=== PATIENT | male | born 1985 | race Caucasian/White ===

== ENCOUNTER 2016-09-08 13:39 | Emergency (ER) | payer OTHER ==
[~2016-09-08 13:39] MED LIST: BACL10TA2 PO; COLA100C PO; DILA8TAB4 PO; GABA300C3 PO; GABA600T PO; HYDR-4274 PO; TYLE325T5 PO
[2016-09-08 15:29] LABS: BASO # 0.1 K/mm3 (0.0-0.2); BASO % 1.1 % (0.0-1.0); EOS # 0.2 K/mm3 (0.0-0.50); EOS % 1.6 % (0.0-3.0); LARGE UNSTAINED CELL # 0.1 K/mm3 (0.0-0.4); LARGE UNSTAINED CELL % 1.1 % (0.0-4.0); LYMPH # 1.7 K/mm3 (1.5-4.5); LYMPH % 14.3 % (24.0-44.0); MEAN CORPUSCULAR HEMOGLOBIN 28.3 pg (27.0-33.0); MEAN CORPUSCULAR HGB CONC 32.9 g/dl (32.0-36.5); MEAN CORPUSCULAR VOLUME 86.2 fl (80.0-96.0); MONO # 0.5 K/mm3 (0.0-0.8); MONO % 4.7 % (0.0-5.0); NEUTROPHILS # 8.3 K/mm3 (1.8-7.7); NEUTROPHILS % 77.3 % (36.0-66.0); PLATELET COUNT, AUTOMATED 245 k/mm3 (150-450); RED CELL DISTRIBUTION WIDTH 15.4 % (11.5-14.5); WHITE BLOOD COUNT 10.8 K/mm3 (4.0-10.0)
--- NOTE | 2016-09-08 15:52 | REP ---
Clinical: Swelling and erythema; rule out osteomyelitis. Technique: AP and lateral views of the right tibia. Comparison: 03/25/2016 Findings: The patient is noted to be status post htmvm-kfv-hxhy amputation. Osseous structures are relatively normal and stable compared to prior examination. No acute periosteal reaction is appreciated and no soft tissue subcutaneous emphysema is noted. Impression: Normal appearance for ehmci-mnp-aceh amputation. No radiographic evidence to suggest acute osteomyelitis. Signed by Agustin Coyle MD 09/08/2016 03:44 P
[2016-09-08 16:30] LABS: ERYTHROCYTE SEDIMENTATION RATE 9 mm/hr (0-15)
[2016-09-08] MEDS ORDERED: BACTRIM 160MG/800MG DS TAB As Ordered ONE (17:11)
[2016-09-08] MEDS ORDERED: KETOROLAC 30 MG/ML VIAL (J1885) As Ordered ONE (17:12)
--- NOTE | 2016-09-08 17:45 | EDDOCDS ---
Physician Documentation [facility] Name: Kurt Asher Age: 31 yrs Sex: Male : 1985 Arrival Date: 09/08/2016 Time: 13:39 Bed PR Private MD: [facility] Disposition: 09/08/16 17:06 Discharged to Home/Self Care. Impression: Cellulitis of right lower limb. - Condition is Stable. - Prescriptions for Bactrim DS 800- 160 mg Oral Tablet - take 2 tablet by ORAL route every 12 hours for 7 days; 28 tablet. naproxen 500 mg Oral tablet - take 1 tablet by ORAL route every 12 hours; 28 tablet. Tylenol 325 mg Oral Tablet - take 2 tablet by ORAL route every 6 hours as needed; 1 bottle. - Medication Reconciliation form. - Follow up: Emergency Department; When: As soon as possible; Reason: Worsening of conditions. Follow up: Private Physician; When: 2 - 3 days; Reason: Recheck today's complaints. - Problem is new. - Symptoms are unchanged. Historical: - Allergies: no known allergies; - Home Meds: 1. baclofen 20 mg Oral tab 1 tab 4 times per day 2. gabapentin 600 mg Oral tab 1 tab four times a day 3. oxycodone 5 mg Oral tab 2 tabs every 4-6 hours as needed - PMHx: Chronic Back pain; - PSHx: right BKA; - Social history: Smoking status: Patient uses tobacco products, current some day smoker. No barriers to communication noted, The patient speaks fluent Yi, Speaks appropriately for age. - Family history: Not pertinent. - : The pt / caregiver states he / she is not on anticoagulants. Home medication list is obtained from the patient. - Exposure Risk Screening:: None identified. Vital Signs: 09/08 13:41 BP 131 / 102; Pulse 93; Resp 18 S; Temp 98.3(O); Pulse Ox 100% on R/A; Weight 83.91 kg dd6 / 184.99 lbs (R); Height 6 ft. 0 in. (182.88 cm) (R); 17:09 BP 146 / 87 RA Sitting (auto/reg); Pulse 84; Resp 16; Temp 96.8(O); Pulse Ox 96% on R/A;rs6 13:41 Body Mass Index 25.09 (83.91 kg, 182.88 cm) dd6 MDM: 15:08 Tibia/Fibula Ordered. EDMS 15:08 CBC with Diff Ordered. EDMS 15:08 CRP Ordered. EDMS 15:08 ESR Ordered. EDMS 17:04 CBC with Diff Reviewed. jk8 17:04 CRP Reviewed. jk8 17:04 ESR Reviewed. jk8 17:04 Tibia/Fibula Reviewed. jk8 17:09 Trimethoprim-Sulfamethoxazole (MRSA dose) 160 mg-800 mg (DS) 2 tabs PO once ordered. jk8 17:09 ketorolac 60 mg IM once ordered. jk8 Administered Medications: 17:20 Drug: Trimethoprim-Sulfamethoxazole (MRSA dose) 2 tabs [sulfamethoxazole 800 ms18 mg-trimethoprim 160 mg tablet (2 tabs)] Route: PO; 17:20 Drug: ketorolac 60 mg [ketorolac 30 mg/mL (1 mL) injection solution (2 mL)] Route: IM; ms18 Site: right gluteus; Signatures: Dispatcher [employer] Brady Mackenzie, RN RN Neil Guajardo RN RN mlb1 Daniel Licona PA-C PABaltazar jAnette Bearden RN ms18 MTDD
--- NOTE | 2016-09-08 17:45 | EDDOCDS ---
Nurse's Notes [facility] Name: Kurt Asher Age: 31 yrs Sex: Male : 1985 Arrival Date: 09/08/2016 Time: 13:39 Bed PR2 / 26 Private MD: [place] Rod[place], [place] Diagnosis: Cellulitis of right lower limb Presentation: 09/08 13:48 Presenting complaint: Patient states: having increasing pain in right BKA stump - bcj increased redness swelling over last few days. unable to put on prothesis today due to pain / swelling. denies injury. was told by [place] yesterday that is MRSA positive. Adult Sepsis Screening: The patient does not have new or worsening altered mentation. Patient's respiratory rate is less than 22. Systolic blood pressure is greater than 100. Patient has a qSOFA score of 0- Negative Sepsis Screen. Suicide/Homicide risk assessment- the patient denies having any suicidal and/or homicidal ideations and does not present with any other emotional, behavioral or mental health complaints. Status: The patient is an active duty automotive service cashier. Transition of care: patient was not received from another setting of care. 13:48 Acuity: RAJWINDER Level 3 bcj 13:48 Method Of Arrival: Walkin/Carried/Asstd bcj Triage Assessment: 13:51 General: Appears in no apparent distress, comfortable. Pain: Location: right leg Pain bcj currently is 9 out of 10 on a pain scale. HIV screening NA for this visit Offered previously. Historical: - Allergies: no known allergies; - Home Meds: 1. baclofen 20 mg Oral tab 1 tab 4 times per day 2. gabapentin 600 mg Oral tab 1 tab four times a day 3. oxycodone 5 mg Oral tab 2 tabs every 4-6 hours as needed - PMHx: Chronic Back pain; - PSHx: right BKA; - Social history: Smoking status: Patient uses tobacco products, current some day smoker. No barriers to communication noted, The patient speaks fluent Egyptian, Speaks appropriately for age. - Family history: Not pertinent. - : The pt / caregiver states he / she is not on anticoagulants. Home medication list is obtained from the patient. - Exposure Risk Screening:: None identified. Screenin:42 Screening information is obtained from the patient. Fall risk: No risks identified. mlb1 Assistance ADL's: requires no assistance with activities of daily living. Abuse/DV Screen: The patient / caregiver reports he/she is: not in a situation that causes fear, pain or injury. Nutritional screening: No deficits noted. Advance Directives: Currently, there is no health care proxy. home support is adequate. Assessment: 17:41 General: Appears in no apparent distress, comfortable, Behavior is appropriate for age, mlb1 cooperative. Pain: Location: right stump Pain currently is 4 out of 10 on a pain scale. Respiratory: No deficits noted. Derm: Skin is pink, warm & dry. Vital Signs: 13:41 BP 131 / 102; Pulse 93; Resp 18 S; Temp 98.3(O); Pulse Ox 100% on R/A; Weight 83.91 kg dd6 (R); Height 6 ft. 0 in. (182.88 cm) (R); 17:09 BP 146 / 87 RA Sitting (auto/reg); Pulse 84; Resp 16; Temp 96.8(O); Pulse Ox 96% on R/A;rs6 13:41 Body Mass Index 25.09 (83.91 kg, 182.88 cm) dd6 Vitals: 13:41 Log In Time: September 08, 2016 at 13:39. dd6 ED Course: 13:41 Patient visited by Iftikhar Ibrahim PCA. dd6 13:41 [facility] is Private Physician. dd6 13:41 Patient moved to Waiting dd6 13:43 Patient moved to Pre RCE dd6 13:50 Triage Initiated bcj 13:52 Patient visited by Brady Linder RN. bcj 14:25 Patient moved to Triage 3 ms18 15:02 Daniel Licona PA-C is PHCP. jk8 15:02 Ashley Nguyen MD is Attending Physician. jk8 15:20 Patient visited by Phoebe Otto PCA. rs6 15:20 Patient moved to TR2 rs6 15:20 ESR Sent. rs6 15:20 CRP Sent. rs6 15:20 CBC with Diff Sent. rs6 15:54 Tibia/Fibula Returned. EDMS 17:03 Patient moved to PR2 / rs6 17:10 Patient visited by Phoebe Otto PCA. rs6 17:34 Patient visited by Daniel Licona PA-C. jk8 17:41 Patient visited by Neil Romo RN. mlb1 17:42 No IV's were initiated during this patient's visit. No procedures done that require mlb1 assistance. 17:43 The patient / caregiver is instructed regarding the plan of care and ED course. mlb1 17:44 Patient visited by Neil Romo RN. mlb1 Administered Medications: 17:20 Drug: Trimethoprim-Sulfamethoxazole (MRSA dose) 2 tabs [sulfamethoxazole 800 ms18 mg-trimethoprim 160 mg tablet (2 tabs)] Route: PO; 17:20 Drug: ketorolac 60 mg [ketorolac 30 mg/mL (1 mL) injection solution (2 mL)] Route: IM; ms18 Site: right gluteus; Order Results: Lab Order: CBC with Diff; SPEC'M 09/08/16 15:19 Test: WHITE BLOOD COUNT; Value: 10.8; Range: 4.0-10.0; Abnormal: Above high normal; Units: K/mm3; Status: F Test: RED BLOOD COUNT; Value: 5.53; Range: 4.30-6.10; Units: M/mm3; Status: F Test: HEMOGLOBIN; Value: 15.7; Range: 14.0-18.0; Units: g/dl; Status: F Test: HEMATOCRIT; Value: 47.7; Range: 42.0-52.0; Units: %; Status: F Test: MEAN CORPUSCULAR VOLUME; Value: 86.2; Range: 80.0-96.0; Units: fl; Status: F Test: MEAN CORPUSCULAR HEMOGLOBIN; Value: 28.3; Range: 27.0-33.0; Units: pg; Status: F Test: MEAN CORPUSCULAR HGB CONC; Value: 32.9; Range: 32.0-36.5; Units: g/dl; Status: F Test: RED CELL DISTRIBUTION WIDTH; Value: 15.4; Range: 11.5-14.5; Abnormal: Above high normal; Units: %; Status: F Test: PLATELET COUNT, AUTOMATED; Value: 245; Range: 150-450; Units: k/mm3; Status: F Test: NEUTROPHILS %; Value: 77.3; Range: 36.0-66.0; Abnormal: Above high normal; Units: %; Status: F Test: LYMPH %; Value: 14.3; Range: 24.0-44.0; Abnormal: Below low normal; Units: %; Status: F Test: MONO %; Value: 4.7; Range: 0.0-5.0; Units: %; Status: F Test: EOS %; Value: 1.6; Range: 0.0-3.0; Units: %; Status: F Test: BASO %; Value: 1.1; Range: 0.0-1.0; Abnormal: Above high normal; Units: %; Status: F Test: LARGE UNSTAINED CELL %; Value: 1.1; Range: 0.0-4.0; Units: %; Status: F Test: NEUTROPHILS #; Value: 8.3; Range: 1.8-7.7; Abnormal: Above high normal; Units: K/mm3; Status: F Test: LYMPH #; Value: 1.7; Range: 1.5-4.5; Units: K/mm3; Status: F Test: MONO #; Value: 0.5; Range: 0.0-0.8; Units: K/mm3; Status: F Test: EOS #; Value: 0.2; Range: 0.0-0.50; Units: K/mm3; Status: F Test: BASO #; Value: 0.1; Range: 0.0-0.2; Units: K/mm3; Status: F Test: LARGE UNSTAINED CELL #; Value: 0.1; Range: 0.0-0.4; Units: K/mm3; Status: F Lab Order: CRP; SPEC'M 09/08/16 15:19 Test: C REACTIVE PROTEIN QUANTITATIV; Value: 7.37; Range: 0.00-0.30; Abnormal: Above high normal; Units: MG/DL; Status: F Lab Order: ESR; SPEC'M 09/08/16 15:19 Test: ERYTHROCYTE SEDIMENTATION RATE; Value: 9; Range: 0-15; Units: mm/hr; Status: F Radiology Order: Tibia/Fibula Test: Tibia/Fibula REASON FOR EXAMINATION: BKA, r/o osteo; Clinical: Swelling and erythema; rule out osteomyelitis.; ; Technique: AP and lateral views of the right tibia.; ; Comparison: 03/25/2016; ; Findings:; The patient is noted to be status post mqxsy-fpn-[id number] amputation. Osseous; structures are relatively normal and stable compared to prior examination. No; acute periosteal reaction is appreciated and no soft tissue subcutaneous; emphysema is noted.; ; Impression:; Normal appearance for ciepb-gci-aoyh amputation.; No radiographic evidence to suggest acute osteomyelitis.; ; ; Signed by; Agustin Coyle MD 09/08/2016 03:44 P; Outcome: 17:06 Discharge ordered by Provider. jk8 17:42 Discharge Assessment: Patient awake, alert and oriented x 3. No cognitive and/or mlb1 functional deficits noted. Patient verbalized understanding of disposition instructions. patient administered narcotics - no. The following High Risk Discharge criteria are identified: None. Discharged to home ambulatory. Condition: good. Discharge instructions given to patient, Instructed on discharge instructions, follow up and referral plans. Demonstrated understanding of instructions, medications, Pt was receptive of discharge instructions/ teaching. Prescriptions given X 3. No special radiology studies were completed. Property sent home with patient. 17:44 Patient left the ED. mlb1 Signatures: Dispatcher [employer] EDMS Brady Linder RN RN Neil Guajardo RN RN mlb1 Iftikhar Ibrahim, BILLING DEPARTMENT SUPERVISOR BILLING DEPARTMENT SUPERVISOR dd6 Anette Antunez RN RN ms18 Phoebe Otto, BILLING DEPARTMENT SUPERVISOR BILLING DEPARTMENT SUPERVISOR rs6 Daniel Licona PA-C PA-C jk8 MTDD
--- NOTE | 2016-09-10 18:45 | EDDOCDS ---
Physician Documentation [facility] Name: Kurt Asher Age: 31 yrs Sex: Male : 1985 Arrival Date: 09/08/2016 Time: 13:39 Bed PR Private MD: [facility] [place] Disposition: 09/08/16 17:06 Discharged to Home/Self Care. Impression: Cellulitis of right lower limb. - Condition is Stable. - Prescriptions for Bactrim DS 800- 160 mg Oral Tablet - take 2 tablet by ORAL route every 12 hours for 7 days; 28 tablet. naproxen 500 mg Oral tablet - take 1 tablet by ORAL route every 12 hours; 28 tablet. Tylenol 325 mg Oral Tablet - take 2 tablet by ORAL route every 6 hours as needed; 1 bottle. - Medication Reconciliation form. - Follow up: Emergency Department; When: As soon as possible; Reason: Worsening of conditions. Follow up: Private Physician; When: 2 - 3 days; Reason: Recheck today's complaints. - Problem is new. - Symptoms are unchanged. Historical: - Allergies: no known allergies; - Home Meds: 1. baclofen 20 mg Oral tab 1 tab 4 times per day 2. gabapentin 600 mg Oral tab 1 tab four times a day 3. oxycodone 5 mg Oral tab 2 tabs every 4-6 hours as needed - PMHx: Chronic Back pain; - PSHx: right BKA; - Social history: Smoking status: Patient uses tobacco products, current some day smoker. No barriers to communication noted, The patient speaks fluent Greenlandic, Speaks appropriately for age. - Family history: Not pertinent. - : The pt / caregiver states he / she is not on anticoagulants. Home medication list is obtained from the patient. - Exposure Risk Screening:: None identified. Vital Signs: 09/08 13:41 BP 131 / 102; Pulse 93; Resp 18 S; Temp 98.3(O); Pulse Ox 100% on R/A; Weight 83.91 kg dd6 / 184.99 lbs (R); Height 6 ft. 0 in. (182.88 cm) (R); 17:09 BP 146 / 87 RA Sitting (auto/reg); Pulse 84; Resp 16; Temp 96.8(O); Pulse Ox 96% on R/A;rs6 13:41 Body Mass Index 25.09 (83.91 kg, 182.88 cm) dd6 MDM: 15:08 Tibia/Fibula Ordered. EDMS 15:08 CBC with Diff Ordered. EDMS 15:08 CRP Ordered. EDMS 15:08 ESR Ordered. EDMS 17:04 CBC with Diff Reviewed. jk8 17:04 CRP Reviewed. jk8 17:04 ESR Reviewed. jk8 17:04 Tibia/Fibula Reviewed. jk8 17:09 Trimethoprim-Sulfamethoxazole (MRSA dose) 160 mg-800 mg (DS) 2 tabs PO once ordered. jk8 17:09 ketorolac 60 mg IM once ordered. jk8 09/09 08:44 T-Sheet-- Draft Copy was scanned into XMPie and attached to record. [facility] Administered Medications: 09/08 17:20 Drug: Trimethoprim-Sulfamethoxazole (MRSA dose) 2 tabs [sulfamethoxazole 800 ms18 mg-trimethoprim 160 mg tablet (2 tabs)] Route: PO; 17:20 Drug: ketorolac 60 mg [ketorolac 30 mg/mL (1 mL) injection solution (2 mL)] Route: IM; ms18 Site: right gluteus; Signatures: Dispatcher [employer] Brady Mackenzie RN RN bcj Barney, Michael B RN RN mlb1 Daniel Licona PA-C PA-C jk8 Ashley Damian Mallory RN ms18 The chart was reviewed and I authenticate all verbal orders and agree with the evaluation and treatment provided.Attachments: 09/09 08:44 T-Sheet-- Draft Copy [facility] Chart Complete MTDD
--- NOTE | 2016-09-10 18:45 | EDDOCDS ---
Physician Documentation [facility] Name: Kurt Asher Age: 31 yrs Sex: Male : 1985 Arrival Date: 09/08/2016 Time: 13:39 Bed PR Private MD: [facility] [place] Disposition: 09/08/16 17:06 Discharged to Home/Self Care. Impression: Cellulitis of right lower limb. - Condition is Stable. - Prescriptions for Bactrim DS 800- 160 mg Oral Tablet - take 2 tablet by ORAL route every 12 hours for 7 days; 28 tablet. naproxen 500 mg Oral tablet - take 1 tablet by ORAL route every 12 hours; 28 tablet. Tylenol 325 mg Oral Tablet - take 2 tablet by ORAL route every 6 hours as needed; 1 bottle. - Medication Reconciliation form. - Follow up: Emergency Department; When: As soon as possible; Reason: Worsening of conditions. Follow up: Private Physician; When: 2 - 3 days; Reason: Recheck today's complaints. - Problem is new. - Symptoms are unchanged. Historical: - Allergies: no known allergies; - Home Meds: 1. baclofen 20 mg Oral tab 1 tab 4 times per day 2. gabapentin 600 mg Oral tab 1 tab four times a day 3. oxycodone 5 mg Oral tab 2 tabs every 4-6 hours as needed - PMHx: Chronic Back pain; - PSHx: right BKA; - Social history: Smoking status: Patient uses tobacco products, current some day smoker. No barriers to communication noted, The patient speaks fluent Korean, Speaks appropriately for age. - Family history: Not pertinent. - : The pt / caregiver states he / she is not on anticoagulants. Home medication list is obtained from the patient. - Exposure Risk Screening:: None identified. Vital Signs: 09/08 13:41 BP 131 / 102; Pulse 93; Resp 18 S; Temp 98.3(O); Pulse Ox 100% on R/A; Weight 83.91 kg dd6 / 184.99 lbs (R); Height 6 ft. 0 in. (182.88 cm) (R); 17:09 BP 146 / 87 RA Sitting (auto/reg); Pulse 84; Resp 16; Temp 96.8(O); Pulse Ox 96% on R/A;rs6 13:41 Body Mass Index 25.09 (83.91 kg, 182.88 cm) dd6 MDM: 15:08 Tibia/Fibula Ordered. EDMS 15:08 CBC with Diff Ordered. EDMS 15:08 CRP Ordered. EDMS 15:08 ESR Ordered. EDMS 17:04 CBC with Diff Reviewed. jk8 17:04 CRP Reviewed. jk8 17:04 ESR Reviewed. jk8 17:04 Tibia/Fibula Reviewed. jk8 17:09 Trimethoprim-Sulfamethoxazole (MRSA dose) 160 mg-800 mg (DS) 2 tabs PO once ordered. jk8 17:09 ketorolac 60 mg IM once ordered. jk8 09/09 08:44 T-Sheet-- Draft Copy was scanned into XbyMe and attached to record. [facility] Administered Medications: 09/08 17:20 Drug: Trimethoprim-Sulfamethoxazole (MRSA dose) 2 tabs [sulfamethoxazole 800 ms18 mg-trimethoprim 160 mg tablet (2 tabs)] Route: PO; 17:20 Drug: ketorolac 60 mg [ketorolac 30 mg/mL (1 mL) injection solution (2 mL)] Route: IM; ms18 Site: right gluteus; Signatures: Dispatcher [employer] Brady Mackenzie RN RN bcj Barney, Michael B RN RN mlb1 Daniel Licona PA-C PA-C jk8 Ashley Damian Mallory RN ms18 The chart was reviewed and I authenticate all verbal orders and agree with the evaluation and treatment provided.Attachments: 09/09 08:44 T-Sheet-- Draft Copy [facility] Chart Complete MTDD
--- NOTE | 2016-09-10 18:45 | EDDOCDS ---
Nurse's Notes [facility] Name: Kurt Asher Age: 31 yrs Sex: Male : 1985 Arrival Date: 09/08/2016 Time: 13:39 Bed PR2 / 26 Private MD: MS Rodrick, Platter Diagnosis: Cellulitis of right lower limb Presentation: 09/08 13:48 Presenting complaint: Patient states: having increasing pain in right BKA stump - bcj increased redness swelling over last few days. unable to put on prothesis today due to pain / swelling. denies injury. was told by MS yesterday that is MRSA positive. Adult Sepsis Screening: The patient does not have new or worsening altered mentation. Patient's respiratory rate is less than 22. Systolic blood pressure is greater than 100. Patient has a qSOFA score of 0- Negative Sepsis Screen. Suicide/Homicide risk assessment- the patient denies having any suicidal and/or homicidal ideations and does not present with any other emotional, behavioral or mental health complaints. Status: The patient is an active duty services engineer. Transition of care: patient was not received from another setting of care. 13:48 Acuity: RAJWINDER Level 3 bcj 13:48 Method Of Arrival: Walkin/Carried/Asstd bcj Triage Assessment: 13:51 General: Appears in no apparent distress, comfortable. Pain: Location: right leg Pain bcj currently is 9 out of 10 on a pain scale. HIV screening NA for this visit Offered previously. Historical: - Allergies: no known allergies; - Home Meds: 1. baclofen 20 mg Oral tab 1 tab 4 times per day 2. gabapentin 600 mg Oral tab 1 tab four times a day 3. oxycodone 5 mg Oral tab 2 tabs every 4-6 hours as needed - PMHx: Chronic Back pain; - PSHx: right BKA; - Social history: Smoking status: Patient uses tobacco products, current some day smoker. No barriers to communication noted, The patient speaks fluent [place], Speaks appropriately for age. - Family history: Not pertinent. - : The pt / caregiver states he / she is not on anticoagulants. Home medication list is obtained from the patient. - Exposure Risk Screening:: None identified. Screenin:42 Screening information is obtained from the patient. Fall risk: No risks identified. mlb1 Assistance ADL's: requires no assistance with activities of daily living. Abuse/DV Screen: The patient / caregiver reports he/she is: not in a situation that causes fear, pain or injury. Nutritional screening: No deficits noted. Advance Directives: Currently, there is no health care proxy. home support is adequate. Assessment: 17:41 General: Appears in no apparent distress, comfortable, Behavior is appropriate for age, mlb1 cooperative. Pain: Location: right stump Pain currently is 4 out of 10 on a pain scale. Respiratory: No deficits noted. Derm: Skin is pink, warm & dry. Vital Signs: 13:41 BP 131 / 102; Pulse 93; Resp 18 S; Temp 98.3(O); Pulse Ox 100% on R/A; Weight 83.91 kg dd6 (R); Height 6 ft. 0 in. (182.88 cm) (R); 17:09 BP 146 / 87 RA Sitting (auto/reg); Pulse 84; Resp 16; Temp 96.8(O); Pulse Ox 96% on R/A;rs6 13:41 Body Mass Index 25.09 (83.91 kg, 182.88 cm) dd6 Vitals: 13:41 Log In Time: September 08, 2016 at 13:39. dd6 ED Course: 13:41 Patient visited by Iftikhar Ibrahim PCA. dd6 13:41 [facility] is Private Physician. dd6 13:41 Patient moved to Waiting dd6 13:43 Patient moved to Pre RCE dd6 13:50 Triage Initiated bcj 13:52 Patient visited by Brady Linder RN. bcj 14:25 Patient moved to Triage 3 ms18 15:02 Daniel Licona PA-C is PHCP. jk8 15:02 Ashley Nguyen MD is Attending Physician. jk8 15:20 Patient visited by Phoebe Otto PCA. rs6 15:20 Patient moved to TR2 rs6 15:20 ESR Sent. rs6 15:20 CRP Sent. rs6 15:20 CBC with Diff Sent. rs6 15:54 Tibia/Fibula Returned. EDMS 17:03 Patient moved to PR2 / rs6 17:10 Patient visited by Phoebe Otto PCA. rs6 17:34 Patient visited by Daniel Licona PA-C. jk8 17:41 Patient visited by Neil Romo RN. mlb1 17:42 No IV's were initiated during this patient's visit. No procedures done that require mlb1 assistance. 17:43 The patient / caregiver is instructed regarding the plan of care and ED course. mlb1 17:44 Patient visited by Neil Romo RN. mlb1 09/09 08:44 T-Sheet-- Draft Copy was scanned into [employer] [place] and attached to record. [facility] Administered Medications: 09/08 17:20 Drug: Trimethoprim-Sulfamethoxazole (MRSA dose) 2 tabs [sulfamethoxazole 800 ms18 mg-trimethoprim 160 mg tablet (2 tabs)] Route: PO; 17:20 Drug: ketorolac 60 mg [ketorolac 30 mg/mL (1 mL) injection solution (2 mL)] Route: IM; ms18 Site: right gluteus; Order Results: Lab Order: CBC with Diff; SPEC'M 09/08/16 15:19 Test: WHITE BLOOD COUNT; Value: 10.8; Range: 4.0-10.0; Abnormal: Above high normal; Units: K/mm3; Status: F Test: RED BLOOD COUNT; Value: 5.53; Range: 4.30-6.10; Units: M/mm3; Status: F Test: HEMOGLOBIN; Value: 15.7; Range: 14.0-18.0; Units: g/dl; Status: F Test: HEMATOCRIT; Value: 47.7; Range: 42.0-52.0; Units: %; Status: F Test: MEAN CORPUSCULAR VOLUME; Value: 86.2; Range: 80.0-96.0; Units: fl; Status: F Test: MEAN CORPUSCULAR HEMOGLOBIN; Value: 28.3; Range: 27.0-33.0; Units: pg; Status: F Test: MEAN CORPUSCULAR HGB CONC; Value: 32.9; Range: 32.0-36.5; Units: g/dl; Status: F Test: RED CELL DISTRIBUTION WIDTH; Value: 15.4; Range: 11.5-14.5; Abnormal: Above high normal; Units: %; Status: F Test: PLATELET COUNT, AUTOMATED; Value: 245; Range: 150-450; Units: k/mm3; Status: F Test: NEUTROPHILS %; Value: 77.3; Range: 36.0-66.0; Abnormal: Above high normal; Units: %; Status: F Test: LYMPH %; Value: 14.3; Range: 24.0-44.0; Abnormal: Below low normal; Units: %; Status: F Test: MONO %; Value: 4.7; Range: 0.0-5.0; Units: %; Status: F Test: EOS %; Value: 1.6; Range: 0.0-3.0; Units: %; Status: F Test: BASO %; Value: 1.1; Range: 0.0-1.0; Abnormal: Above high normal; Units: %; Status: F Test: LARGE UNSTAINED CELL %; Value: 1.1; Range: 0.0-4.0; Units: %; Status: F Test: NEUTROPHILS #; Value: 8.3; Range: 1.8-7.7; Abnormal: Above high normal; Units: K/mm3; Status: F Test: LYMPH #; Value: 1.7; Range: 1.5-4.5; Units: K/mm3; Status: F Test: MONO #; Value: 0.5; Range: 0.0-0.8; Units: K/mm3; Status: F Test: EOS #; Value: 0.2; Range: 0.0-0.50; Units: K/mm3; Status: F Test: BASO #; Value: 0.1; Range: 0.0-0.2; Units: K/mm3; Status: F Test: LARGE UNSTAINED CELL #; Value: 0.1; Range: 0.0-0.4; Units: K/mm3; Status: F Lab Order: CRP; SPEC'M 09/08/16 15:19 Test: C REACTIVE PROTEIN QUANTITATIV; Value: 7.37; Range: 0.00-0.30; Abnormal: Above high normal; Units: MG/DL; Status: F Lab Order: ESR; SPEC'M 09/08/16 15:19 Test: ERYTHROCYTE SEDIMENTATION RATE; Value: 9; Range: 0-15; Units: mm/hr; Status: F Radiology Order: Tibia/Fibula Test: Tibia/Fibula REASON FOR EXAMINATION: BKA, r/o osteo; Clinical: Swelling and erythema; rule out osteomyelitis.; ; Technique: AP and lateral views of the right tibia.; ; Comparison: 03/25/2016; ; Findings:; The patient is noted to be status post [id number] amputation. Osseous; structures are relatively normal and stable compared to prior examination. No; acute periosteal reaction is appreciated and no soft tissue subcutaneous; emphysema is noted.; ; Impression:; Normal appearance for [id number] amputation.; No radiographic evidence to suggest acute osteomyelitis.; ; ; Signed by; Agustin Coyle MD 09/08/2016 03:44 P; Outcome: 17:06 Discharge ordered by Provider. jk8 17:42 Discharge Assessment: Patient awake, alert and oriented x 3. No cognitive and/or mlb1 functional deficits noted. Patient verbalized understanding of disposition instructions. patient administered narcotics - no. The following High Risk Discharge criteria are identified: None. Discharged to home ambulatory. Condition: good. Discharge instructions given to patient, Instructed on discharge instructions, follow up and referral plans. Demonstrated understanding of instructions, medications, Pt was receptive of discharge instructions/ teaching. Prescriptions given X 3. No special radiology studies were completed. Property sent home with patient. 17:44 Patient left the ED. mlb1 Signatures: Dispatcher [employer] EDBrady Driver, RN RN Neil Guajardo RN RN mlb1 Iftikhar Ibrahim, COMMUNICATIONS PLANNER COMMUNICATIONS PLANNER dd6 Anette Antunez RN RN ms18 Phoebe Otto, COMMUNICATIONS PLANNER COMMUNICATIONS PLANNER rs6 Daniel Licona PA-C PA-C jk8 Hoffert, Sarah seh Chart Complete MTDD
== END 2016-09-08 17:44 | disposition home or self-care (01) ==
LOC: M ED 13:39
DX: L03.115 Cellulitis of right lower limb (principal); G89.29 Other chronic pain; Z89.511 Acquired absence of right leg below knee; F17.200 Nicotine dependence, unspecified, uncomplicated; Z79.899 Other long term (current) drug therapy
CPT/HCPCS: 36415; 73590; 85025; 85652; 86140; 96372; 99284; J1885

== ENCOUNTER 2016-12-19 11:23 | Emergency (ER) | payer OTHER ==
[~2016-12-19] VITALS: Ht 182.9 cm; Wt 88.5 kg
[~2016-12-19 11:23] MED LIST changes: -COLA100C PO; +COLA100C3 PO; +GABA-282 PO; -GABA300C3 PO
[2016-12-19] MEDS ORDERED: OXYC15TA76 PO (11:40)
[2016-12-19] MEDS ORDERED: KETOROLAC 30 MG/ML VIAL (J1885) IV ONE (12:30)
[2016-12-19] MEDS ORDERED: CLINDAMYCIN 900 MG in APPROPRIATE DILUENT 1 EA IV ONE (12:30)
[2016-12-19 13:05] LABS: BASO % 0.4 % (0.0-1.0); EOS # 0.2 K/mm3 (0.0-0.50); EOS % 1.8 % (0.0-3.0); LARGE UNSTAINED CELL # 0.1 K/mm3 (0.0-0.4); LYMPH # 1.7 K/mm3 (1.5-4.5); LYMPH % 13.3 % (24.0-44.0); MEAN CORPUSCULAR HEMOGLOBIN 28.9 pg (27.0-33.0); MEAN CORPUSCULAR HGB CONC 33.8 g/dl (32.0-36.5); MEAN CORPUSCULAR VOLUME 85.4 fl (80.0-96.0); MONO # 0.6 K/mm3 (0.0-0.8); NEUTROPHILS # 9.2 K/mm3 (1.8-7.7); NEUTROPHILS % 78.5 % (36.0-66.0); PLATELET COUNT, AUTOMATED 233 k/mm3 (150-450); RED CELL DISTRIBUTION WIDTH 13.8 % (11.5-14.5); WHITE BLOOD COUNT 11.7 K/mm3 (4.0-10.0)
[2016-12-19 13:23] LABS: ANION GAP 7 MEQ/L (8-16); BLOOD UREA NITROGEN 15 MG/DL (7-18); CALCIUM LEVEL 8.9 MG/DL (8.5-10.1); CARBON DIOXIDE LEVEL 29 MEQ/L (21-32); CHLORIDE LEVEL 102 MEQ/L (98-107); CREATININE FOR GFR 0.96 MG/DL (0.70-1.30); GLOMERULAR FILTRATION RATE > 60.0 (>60); GLUCOSE, FASTING 93 MG/DL (70-105); POTASSIUM SERUM 3.8 MEQ/L (3.5-5.1); SODIUM LEVEL 138 MEQ/L (136-145)
[2016-12-19 13:35] LABS: ERYTHROCYTE SEDIMENTATION RATE 37 mm/hr (0-15)
--- NOTE | 2016-12-19 13:42 | REP ---
RIGHT KNEE: Four views of the right knee performed. The patient has had a prior amputation at the level of the proximal third of the tibia. No definite osseous destruction is seen to suggest the presence of acute osteomyelitis. Metallic clip are seen adjacent to the proximal tibia. There is no fracture. IMPRESSION: No fracture or definite osseus destruction. Signed by Dima Rodriguez MD 12/20/2016 04:43 P
[2016-12-19] MEDS ORDERED: PERCOCET 5MG/325MG TAB PO ONE (13:45)
[2016-12-19] MEDS ORDERED: NAPR500T PO (13:58)
[2016-12-19] MEDS ORDERED: CLEO300C2 PO (13:58)
[2016-12-19 14:09] VITALS: BP 129/92
== END 2016-12-19 14:11 | disposition home or self-care (01) ==
LOC: M ED 12:39
DX: L03.115 Cellulitis of right lower limb (principal); Z89.511 Acquired absence of right leg below knee; Z79.899 Other long term (current) drug therapy; F17.210 Nicotine dependence, cigarettes, uncomplicated
CPT/HCPCS: 73564; 80048; 85025; 85652; 86140; 96374; 96375; 99282; J1885

== ENCOUNTER 2016-12-21 18:56 | Emergency (ER) | payer OTHER ==
[~2016-12-21] VITALS: Ht 182.9 cm; Wt 86.2 kg
[~2016-12-21 18:56] MED LIST changes: +CLEO300C2 PO; +NAPR500T PO; +OXYC15TA76 PO
[2016-12-21] MEDS ORDERED: MORPHINE 4 MG/ML 1ML SYRINGE IV ONE (19:45)
[2016-12-21 20:06] LABS: BASO % 0.5 % (0.0-1.0); EOS # 0.4 K/mm3 (0.0-0.50); LARGE UNSTAINED CELL # 0.1 K/mm3 (0.0-0.4); LARGE UNSTAINED CELL % 1.8 % (0.0-4.0); LYMPH # 1.9 K/mm3 (1.5-4.5); LYMPH % 25.6 % (24.0-44.0); MEAN CORPUSCULAR HEMOGLOBIN 28.5 pg (27.0-33.0); MEAN CORPUSCULAR HGB CONC 33.4 g/dl (32.0-36.5); MEAN CORPUSCULAR VOLUME 85.5 fl (80.0-96.0); MONO # 0.5 K/mm3 (0.0-0.8); MONO % 6.7 % (0.0-5.0); NEUTROPHILS # 4.3 K/mm3 (1.8-7.7); NEUTROPHILS % 60.3 % (36.0-66.0); PLATELET COUNT, AUTOMATED 252 k/mm3 (150-450); RED CELL DISTRIBUTION WIDTH 13.9 % (11.5-14.5); WHITE BLOOD COUNT 7.1 K/mm3 (4.0-10.0)
[2016-12-21 20:24] LABS: ANION GAP 7 MEQ/L (8-16); BLOOD UREA NITROGEN 22 MG/DL (7-18); CALCIUM LEVEL 8.8 MG/DL (8.5-10.1); CARBON DIOXIDE LEVEL 27 MEQ/L (21-32); CHLORIDE LEVEL 102 MEQ/L (98-107); CREATININE FOR GFR 1.06 MG/DL (0.70-1.30); GLOMERULAR FILTRATION RATE > 60.0 (>60); GLUCOSE, FASTING 106 MG/DL (70-105); POTASSIUM SERUM 3.8 MEQ/L (3.5-5.1); SODIUM LEVEL 136 MEQ/L (136-145)
[2016-12-21] MEDS ORDERED: ISOVUE-370 76% 100ML VIAL (Q9967) As Ordered ONE (20:34)
[2016-12-21 20:54] LABS: ERYTHROCYTE SEDIMENTATION RATE 54 mm/hr (0-15)
[2016-12-21] MEDS ORDERED: NS 1,000 ML IV ONE (21:00)
[2016-12-21] MEDS ORDERED: VANCOMYCIN HCL 1,000 MG, VIAL MATE ADAPTER 1 EACH in D5W 250 ML IV ONE (21:00)
[2016-12-21] MEDS ORDERED: cefTRIAXone SOD 2 GM in D5W MINI-BAG PLUS 50 ML IV ONE (21:00)
--- NOTE | 2016-12-21 21:40 | REPUSA ---
CT of the right knee with contrast Clinical statement: Pain. Technique: Multiple axial CT images were obtained with 5 mm cuts through the right knee following ad ministration of nonionic intravenous contrast. Coronal and sagittal reconstructions were also obtaine d. No comparison is available. Findings: The osseous structures do not demonstrate any fractures or dislocations. The patient had a below the knee amputation. Extensive sclerotic changes throughout the osseous structures, with cystic degenerative changes are appreciated. No discrete lytic obstructive changes are noted. There is a fl uid collection demonstrated anterior to the distal amputation site, measuring 1.9 x 4.0 x 3.3 cm. A p eripheral rim of enhancement is seen at this site. Diffuse surrounding soft tissue inflammation is no ced. The joint spaces are well-maintained. Impression: 1. Loculated fluid collection at the amputation site with severe surrounding inflammation. The findin gs are consistent with an abscess with surrounding cellulitis. 2. No acute osseous abnormality. No fractures or destructive osseous lesions. Diffuse sclerotic [place] es throughout the osseous structures are noted, suggesting severe osteopenia. 3. Although cellulitis and possible abscess is noted, there is no discrete evidence of osteomyelitis at this time. If there is further clinical concern however, MRI should be considered. ER physician was notified of these findings at 9:30 PM on 12/21/2016.
[2016-12-21] MEDS: HYDROmorphone HCL 1 MG/ML SYRINGE (J1170) IV PRN ×2 (21:48→22:47)
[2016-12-21] MEDS ORDERED: KEFL500C7 PO (22:55)
[2016-12-21 23:02] VITALS: BP 131/81
== END 2016-12-21 23:14 | disposition home or self-care (01) ==
LOC: M ED 19:45
DX: L02.415 Cutaneous abscess of right lower limb (principal); L03.115 Cellulitis of right lower limb; Z79.899 Other long term (current) drug therapy; F17.210 Nicotine dependence, cigarettes, uncomplicated
CPT/HCPCS: 73701; 80048; 83605; 85025; 85652; 86140; 87040; 96374; 96375; 99283; J0696; J1170; J3370; Q9967

== ENCOUNTER → 2017-06-05 | Outpatient (CLI) | payer SELFPAY ==
[~2017-06-05] MED LIST changes: -COLA100C3 PO; +COLA100C5 PO; -DILA8TAB4 PO; +DILA8TAB5 PO; -HYDR-4274 PO; +HYDR50TA70 PO; +KEFL500C17 PO
== END ==
LOC: M OUTALCOH 07:46
PROVIDERS: ATTEND Psychiatry & Neurology Psychiatry
DX: Z03.89 Encounter for observation for other suspected diseases and conditions ruled out (principal)

== ENCOUNTER 2018-07-23 21:22 | Emergency (ER) | payer OTHER ==
[2018-07-23] MEDS: NS 1,000 ML IV (22:30)
[2018-07-23 22:53] LABS: BASO % 0.7 % (0.0-1.0); EOS # 0.2 10^3/uL (0.0-0.50); EOS % 2.7 % (0.0-3.0); HEMATOCRIT 43.6 % (42.0-52.0); HEMOGLOBIN 14.4 g/dl (13.5-17.5); IMMATURE GRANULOCYTE % 0.2 % (0-3.0); LYMPH # 1.5 10^3/uL (1.5-4.5); MEAN CORPUSCULAR HEMOGLOBIN 28.6 pg (27.0-33.0); MEAN CORPUSCULAR VOLUME 86.5 fl (80.0-96.0); MONO # 0.6 10^3/uL (0.0-0.8); MONO % 9.6 % (0.0-5.0); NEUTROPHILS # 3.7 10^3/uL (1.8-7.7); NEUTROPHILS % 61.8 % (36.0-66.0); PLATELET COUNT, AUTOMATED 269 10^3/uL (150-450); RED BLOOD COUNT 5.04 10^6/uL (4.30-6.10); RED CELL DISTRIBUTION WIDTH 13.2 % (11.5-14.5)
[2018-07-23] MEDS: MORPHINE 4 MG/ML 1ML VIAL/SYRINGE (J2270) IV (22:55)
[2018-07-23 23:10] LABS: ERYTHROCYTE SEDIMENTATION RATE 17 mm/hr (0-15)
[2018-07-23 23:13] LABS: ANION GAP 6 MEQ/L (8-16); BLOOD UREA NITROGEN 20 MG/DL (7-18); CALCIUM LEVEL 8.3 MG/DL (8.5-10.1); CARBON DIOXIDE LEVEL 27 MEQ/L (21-32); CHLORIDE LEVEL 108 MEQ/L (98-107); CREATININE FOR GFR 1.12 MG/DL (0.70-1.30); GLOMERULAR FILTRATION RATE > 60.0 (>60); GLUCOSE, FASTING 61 MG/DL (70-100); POTASSIUM SERUM 4.3 MEQ/L (3.5-5.1); SODIUM LEVEL 141 MEQ/L (136-145)
[2018-07-23 23:34] LABS: LACTIC ACID SEPSIS PROTOCOL 2.6 MMOL/L (0.4-2.0)
[2018-07-23] MEDS: CLINDAMYCIN 900 MG in APPROPRIATE DILUENT 1 EA IV (23:39)
[2018-07-24] MEDS: NS 1,000 ML IV
[2018-07-24] MEDS: BACTRIM 160MG/800MG DS TAB PO (01:00)
[2018-07-24] MEDS: OXYCODONE/APAP 5MG/325MG(BULK FOR ED) 1 TABLET PO (01:00)
== END 2018-07-24 01:21 | disposition home or self-care (01) ==
LOC: M ED 07-24 01:21
DX: L03.115 Cellulitis of right lower limb (principal); M79.89 Other specified soft tissue disorders; M79.2 Neuralgia and neuritis, unspecified; Z89.511 Acquired absence of right leg below knee; Z79.899 Other long term (current) drug therapy
CPT/HCPCS: J2270

== ENCOUNTER → 2018-11-25 | Outpatient (CLI) | payer MEDICARE, OTHER ==
[~2018-11-25] MED LIST changes: +BACT800T5 PO; +CLOT1CRE TOP; -GABA-282 PO; +GABA-843 PO; -GABA600T PO; +GABA600T4 PO; +LIDO1CRE2 TOP; +NALO0.4I3; +NAPR-837 PO; -NAPR500T PO; +NEUR600T PO; +OXYC-517 PO; +PERC5TAB12 PO; +ROXI1TAB2 PO; +SERT-141 PO
[2018-11-25 18:26] LABS: HEMATOCRIT 44.2 % (42.0-52.0); HEMOGLOBIN 14.6 g/dl (13.5-17.5); MEAN CORPUSCULAR HEMOGLOBIN 28.1 pg (27.0-33.0); PLATELET COUNT, AUTOMATED 245 10^3/uL (150-450); WHITE BLOOD COUNT 8.5 10^3/uL (4.0-10.0)
[2018-11-25 22:20] LABS: CHLAMYDIA DNA AMPLIFICATION NEGATIVE (NEGATIVE); GC DNA AMPLIFICATION NEGATIVE (NEGATIVE)
--- NOTE | 2018-11-26 06:28 | ECGEPIP ---
Stationary ECG Study [facility] Test Date: 2018-11-25 Pat Name: ROM BOYKIN Department: Room: - Gender: M Principal Associate: : 1985 Requested By: Dima Abraham Order Number: [id number] Reading MD: Мария Lainez Measurements Intervals [place] Rate: 63 P: 40 NH: normal sta QRS: 18 QRSD: 83 T: 29 QT: 393 QTc: 404 Interpretive Statements SINUS RHYTHM Stable c/w 05/01/18 except nonspecific T abn III Electronically Signed On 11-26-2018 6:28:28 EDT by Мария Lainez
[2018-11-26 11:13] LABS: HEPATITIS B SURFACE ANTIGEN NEGATIVE (NEGATIVE); HIV 1&2 SCREEN CENTAUR NEGATIVE (NEGATIVE)
[2018-12-01 10:58] LABS: ALBUMIN 3.9 GM/DL (3.2-5.2); ALT/SGPT 45 U/L (12-78); BILIRUBIN,TOTAL 0.4 MG/DL (0.2-1.0); BLOOD UREA NITROGEN 17 MG/DL (7-18); CALCIUM LEVEL 8.8 MG/DL (8.5-10.1); CARBON DIOXIDE LEVEL 28 MEQ/L (21-32); CHLORIDE LEVEL 105 MEQ/L (98-107); CREATININE FOR GFR 1.12 MG/DL (0.70-1.30); GLOMERULAR FILTRATION RATE > 60.0 (>60); GLUCOSE, FASTING 112 MG/DL (70-100); POTASSIUM SERUM 4.7 MEQ/L (3.5-5.1); SODIUM LEVEL 139 MEQ/L (136-145); TOTAL PROTEIN 6.7 GM/DL (6.4-8.2)
== END ==
LOC: M LAB 17:40
PROVIDERS: ATTEND Family Medicine
DX: F11.20 Opioid dependence, uncomplicated (principal)

== ENCOUNTER 2019-04-30 21:23 | Emergency (ER) | payer MEDICARE, OTHER ==
[~2019-04-30] VITALS: Ht 182.9 cm; Wt 93.2 kg
[2019-04-30 23:46] LABS: BASO % 0.3 % (0.0-1.0); EOS # 0.1 10^3/uL (0.0-0.5); EOS % 0.8 % (0.0-3.0); HEMATOCRIT 38.6 % (42.0-52.0); HEMOGLOBIN 12.7 g/dl (13.5-17.5); LYMPH # 1.7 10^3/uL (1.5-5.0); LYMPH % 17.8 % (24.0-44.0); MEAN CORPUSCULAR HEMOGLOBIN 28.5 pg (27.0-33.0); MEAN CORPUSCULAR HGB CONC 32.9 g/dl (32.0-36.5); MEAN CORPUSCULAR VOLUME 86.7 fl (80.0-96.0); MONO # 0.8 10^3/uL (0.0-0.8); MONO % 8.3 % (0.0-5.0); NEUTROPHILS % 72.4 % (36.0-66.0); PLATELET COUNT, AUTOMATED 284 10^3/uL (150-450); RED BLOOD COUNT 4.45 10^6/uL (4.30-6.10); WHITE BLOOD COUNT 9.7 10^3/uL (4.0-10.0)
[2019-05-01 00:13] LABS: BLOOD UREA NITROGEN 20 MG/DL (7-18); C REACTIVE PROTEIN QUANTITATIV 8.02 MG/DL (0.00-0.30); CARBON DIOXIDE LEVEL 29 MEQ/L (21-32); CHLORIDE LEVEL 101 MEQ/L (98-107); CREATININE FOR GFR 0.91 MG/DL (0.70-1.30); ERYTHROCYTE SEDIMENTATION RATE 59 mm/hr (0-15); GLOMERULAR FILTRATION RATE > 60.0 (>60); GLUCOSE, FASTING 92 MG/DL (70-100); POTASSIUM SERUM 4.5 MEQ/L (3.5-5.1); SODIUM LEVEL 136 MEQ/L (136-145)
[2019-05-01] MEDS ORDERED: KETOROLAC 30 MG/ML VIAL (J1885) IV ONE (00:15)
[2019-05-01] MEDS ORDERED: BACTRIM 160MG/800MG DS TAB PO ONE (00:15)
[2019-05-01] MEDS ORDERED: NAPR-837 PO (01:01)
[2019-05-01] MEDS ORDERED: BACT800T5 PO (01:01)
[2019-05-01 01:39] VITALS: BP 124/78
== END 2019-05-01 01:47 | disposition home or self-care (01) ==
LOC: M ED 21:23
DX: L03.115 Cellulitis of right lower limb (principal); F11.20 Opioid dependence, uncomplicated; Z79.899 Other long term (current) drug therapy; Z89.511 Acquired absence of right leg below knee; Z97.13 Presence of artificial right leg (complete) (partial)
CPT/HCPCS: 80048; 85025; 85652; 86140; 87040; 96374; 99283; J1885

== ENCOUNTER 2019-11-30 11:01 | Emergency (ER) | payer OTHER, MEDICARE ==
[~2019-11-30] VITALS: Ht 182.9 cm; Wt 99.2 kg
[2019-11-30] MEDS ORDERED: AMOX500C PO (11:29)
[2019-11-30] MEDS ORDERED: METH5TA PO (11:29)
[2019-11-30] MEDS ORDERED: KETOROLAC 30 MG/ML VIAL (J1885) IV ONE (11:45)
[2019-11-30] MEDS ORDERED: ONDANSETRON 4MG/2ML VIAL (J2405) IV ONE (11:45)
[2019-11-30 12:14] LABS: BASO % 0.7 % (0.0-1.0); EOS # 0.1 10^3/uL (0.0-0.5); EOS % 1.8 % (0.0-3.0); HEMATOCRIT 43.7 % (42.0-52.0); HEMOGLOBIN 14.4 g/dl (13.5-17.5); LYMPH # 1.9 10^3/uL (1.5-5.0); LYMPH % 33.4 % (24.0-44.0); MEAN CORPUSCULAR HEMOGLOBIN 27.4 pg (27.0-33.0); MEAN CORPUSCULAR VOLUME 83.2 fl (80.0-96.0); MONO # 0.5 10^3/uL (0.0-0.8); MONO % 8.4 % (0.0-5.0); NEUTROPHILS # 3.1 10^3/uL (1.5-8.5); NEUTROPHILS % 55.3 % (36.0-66.0); PLATELET COUNT, AUTOMATED 243 10^3/uL (150-450); RED BLOOD COUNT 5.25 10^6/uL (4.30-6.10); WHITE BLOOD COUNT 5.6 10^3/uL (4.0-10.0)
[2019-11-30 12:25] LABS: INR 0.93; PARTIAL THROMBOPLASTIN TIME 27.4 SECONDS (25.0-38.4); PROTHROMBIN TIME 12.2 SECONDS (11.8-14.0)
[2019-11-30 12:41] LABS: ALT/SGPT 56 U/L (12-78); BILIRUBIN,DIRECT < 0.1 MG/DL (0.0-0.2); BILIRUBIN,TOTAL 0.4 MG/DL (0.2-1.0); LIPASE 40 U/L (73-393); TOTAL PROTEIN 7.5 GM/DL (6.4-8.2)
[2019-11-30] MEDS ORDERED: ISOVUE-370 76% 100ML VIAL (Q9967) As Ordered ONE (12:57)
--- NOTE | 2019-11-30 13:40 | REP ---
RIGHT UPPER QUADRANT ULTRASOUND: Real-time sonographic evaluation of the right upper quadrant performed. The study is limited due to patient body habitus and bowel gas. Gallbladder demonstrates no evidence of intraluminal sludge or calculi, wall thickening or pericholecystic fluid. There is no intrahepatic or extrahepatic biliary dilatation, common bile duct measuring 5 mm. The liver is grossly unremarkable with no gross mass. The pancreas could not be seen due to overlying bowel gas. Right kidney demonstrates no hydronephrosis with normal size 12 cm in length. IMPRESSION: Somewhat limited exam due to patient body habitus and bowel gas. No evidence of gallstones, gallbladder wall thickening, pericholecystic fluid or biliary dilatation. Electronically Signed by Dima Rodriguez MD 11/30/2019 03:13 P
--- NOTE | 2019-11-30 14:00 | REP ---
CT ABDOMEN AND PELVIS WITH IV BUT WITHOUT ORAL CONTRAST: HISTORY: Right upper quadrant pain. Comparison CT study abdomen and pelvis March 12, 2016. CT CONTRAST DOSE: 100 mL of intravenous Isovue 370. 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 There is minimal linear plate-like atelectasis in the right lower lobe. No pleural effusion is seen. The liver is normal in size. There is a small subcentimeter cyst in the left lobe of the liver measuring 7 mm in diameter. There is another cyst in the right lobe which measures 11 mm in diameter. No other focal liver lesion is seen. No splenic lesion is observed. No adrenal lesion is seen on either side. No abnormality is noted in the pancreas or the gallbladder. The kidneys enhance symmetrically. There is an intrarenal calculus 3 mm in diameter at mid pole level in the left kidney. No hydronephrosis is seen on either side. No ureteral or bladder calculus is observed. There is a normal appendix in the right lower quadrant. No retroperitoneal mass or adenopathy is seen. Small and large bowel loops are unremarkable. Seminal vesicles and prostate appear intact. No abdominal wall defect or bony destructive lesion is appreciated. IMPRESSION: No acute abdominal or pelvic abnormality. Two small liver cysts. Normal appendix. Electronically Signed by Thomas Killian MD 11/30/2019 03:05 P
--- NOTE | 2019-11-30 14:28 | REP ---
REASON FOR EXAM: Right-sided chest pain. COMPARISON: Portable examination of 03/12/2016 which is the latest prior. FINDINGS: The superior mediastinal structures are midline. The cardiac silhouette is unremarkable in size, shape, and position. The diaphragmatic surfaces of the lungs are regular, and the costophrenic angles are clear. The pulmonary [place] are clear. The imaged osseous structures are intact. IMPRESSION: There is no acute cardiopulmonary disease. Electronically Signed by Krystian Swan DO 11/30/2019 02:50 P
[2019-11-30 14:37] VITALS: BP 121/74
== END 2019-11-30 14:46 | disposition home or self-care (01) ==
LOC: M ED 11:01
DX: R10.11 Right upper quadrant pain (principal); F33.9 Major depressive disorder, recurrent, unspecified; F43.10 Post-traumatic stress disorder, unspecified; Z79.899 Other long term (current) drug therapy; Z79.891 Long term (current) use of opiate analgesic; F17.210 Nicotine dependence, cigarettes, uncomplicated
CPT/HCPCS: 71046; 74177; 76705; 80047; 80076; 81001; 83690; 85025; 85610; 85730; 96374; 96375; 99284; J1885; J2405; Q9967

== ENCOUNTER → 2020-03-24 | Outpatient (CLI) | payer MEDICARE ==
[~2020-03-24] MED LIST changes: +AMOX500C PO; -CLOT1CRE TOP; +CLOT1CRE51 TOP; +METH5TA PO; +OXYC-1 PO; -OXYC15TA76 PO
[2020-04-22 09:46] LABS: CHLAMYDIA DNA AMPLIFICATION NEGATIVE (NEGATIVE); GC DNA AMPLIFICATION NEGATIVE (NEGATIVE)
[2020-04-23 13:05] LABS: HEMATOCRIT 42.8 % (42.0-52.0); MEAN CORPUSCULAR HEMOGLOBIN 28.1 pg (27.0-33.0); MEAN CORPUSCULAR HGB CONC 32.7 g/dl (32.0-36.5); MEAN CORPUSCULAR VOLUME 85.9 fl (80.0-96.0); PLATELET COUNT, AUTOMATED 231 10^3/uL (150-450); RED BLOOD COUNT 4.98 10^6/uL (4.30-6.10); WHITE BLOOD COUNT 6.4 10^3/uL (4.0-10.0)
[2020-05-09 08:36] LABS: ALBUMIN 4.2 GM/DL (3.2-5.2); ALT/SGPT 36 U/L (12-78); BILIRUBIN,TOTAL 0.4 MG/DL (0.2-1.0); BLOOD UREA NITROGEN 19 MG/DL (7-18); CALCIUM LEVEL 9.3 MG/DL (8.5-10.1); CARBON DIOXIDE LEVEL 33 MEQ/L (21-32); CHLORIDE LEVEL 104 MEQ/L (98-107); CREATININE FOR GFR 1.14 MG/DL (0.70-1.30); GLOMERULAR FILTRATION RATE > 60.0 (>60); GLUCOSE, FASTING 62 MG/DL (70-100); HEPATITIS C VIRUS ABY INDEX 0.1 INDEX (<0.8); HIV 1&2 SCREEN CENTAUR NEGATIVE (NEGATIVE); SODIUM LEVEL 139 MEQ/L (136-145); TOTAL PROTEIN 7.4 GM/DL (6.4-8.2)
[2020-05-09 08:40] LABS: HEPATITIS B SURFACE ANTIGEN NEGATIVE (NEGATIVE)
--- NOTE | 2020-05-18 10:54 | ECGEPIP ---
[facility] Test Date: 2020-03-24 Pat Name: ROM BOYKIN Department: Room: - Gender: Male Blood Splatter Analyst: STEPHANIE : 1985 Requested By: Dima Abraham Order Number: [id number] Reading MD: Hasmukh Graham Measurements Intervals [place] Rate: 57 P: 49 WI: 140 QRS: 2 QRSD: 93 T: 16 QT: 420 QTc: 410 Interpretive Statements SINUS BRADYCARDIA OTHERWISE NORMAL SEE SCANNED DOWNTIME REPORT
== END ==
LOC: M LAB 12:55
PROVIDERS: ATTEND Family Medicine
DX: F11.20 Opioid dependence, uncomplicated (principal); Z79.899 Other long term (current) drug therapy

== ENCOUNTER 2020-07-13 13:26 | Emergency (ER) | payer MEDICARE ==
[~2020-07-13] VITALS: Ht 182.9 cm; Wt 220.0 kg
[2020-07-13] MEDS ORDERED: LIDOCAINE W/EPINEPHRINE 1% 20ML VIAL SC ONE (14:00)
[2020-07-13] MEDS ORDERED: HYDROMORPHONE HCL 0.5 MG/ 0.5 ML SYRINGE (J1170 PER 1) IV PRN (14:00)
--- NOTE | 2020-07-13 14:33 | REP ---
INDICATION: laceration COMPARISON: None. TECHNIQUE: Four views left knee. FINDINGS: There is no evidence of acute fracture, dislocation, or intrinsic bone disease.No radiopaque foreign body is seen in the soft tissues. IMPRESSION: No fracture or dislocation. No radiopaque foreign body is seen in the soft tissues. <Electronically signed by Dima Rodriguez > 07/13/20 [id number]
[2020-07-13] MEDS ORDERED: BUPIVACAINE HCL 0.5% 10ML VIAL SC ONE (14:45)
[2020-07-13] MEDS ORDERED: KEFL500C17 PO (17:26)
[2020-07-13] MEDS ORDERED: KETO10TAB PO (17:26)
[2020-07-13 18:06] VITALS: BP 141/75
== END 2020-07-13 18:09 | disposition home or self-care (01) ==
LOC: M ED 13:26
DX: S81.812A Laceration without foreign body, left lower leg, initial encounter (principal); W22.8XXA Striking against or struck by other objects, initial encounter; Y92.018 Other place in single-family (private) house as the place of occurrence of the external cause; F33.9 Major depressive disorder, recurrent, unspecified; F43.10 Post-traumatic stress disorder, unspecified; Z79.899 Other long term (current) drug therapy
CPT/HCPCS: 12002; 73564; 96374; 99284; J1170

== ENCOUNTER → 2021-04-07 | Outpatient (CLI) | payer MEDICARE ==
[~2021-04-07] MED LIST changes: +GABA-282 PO; -GABA-843 PO; +KETO10TAB PO
[2021-04-07 11:30] LABS: HEMATOCRIT 44.6 % (42.0-52.0); HEMOGLOBIN 14.8 g/dl (13.5-17.5); MEAN CORPUSCULAR HEMOGLOBIN 28.1 pg (27.0-33.0); MEAN CORPUSCULAR HGB CONC 33.2 g/dl (32.0-36.5); MEAN CORPUSCULAR VOLUME 84.6 fl (80.0-96.0); PLATELET COUNT, AUTOMATED 228 10^3/uL (150-450); RED BLOOD COUNT 5.27 10^6/uL (4.30-6.10); WHITE BLOOD COUNT 5.2 10^3/uL (4.0-10.0)
[2021-04-07 12:02] LABS: ALBUMIN 3.9 GM/DL (3.2-5.2); ALT/SGPT 54 U/L (12-78); BILIRUBIN,TOTAL 0.5 MG/DL (0.2-1.0); BLOOD UREA NITROGEN 15 MG/DL (7-18); CARBON DIOXIDE LEVEL 28 MEQ/L (21-32); CHLORIDE LEVEL 108 MEQ/L (98-107); CREATININE FOR GFR 0.91 MG/DL (0.70-1.30); GLOMERULAR FILTRATION RATE > 60.0 (>60); GLUCOSE, FASTING 88 MG/DL (70-100); POTASSIUM SERUM 4.6 MEQ/L (3.5-5.1); SODIUM LEVEL 140 MEQ/L (136-145); TOTAL PROTEIN 6.9 GM/DL (6.4-8.2)
[2021-04-07 12:18] LABS: HEPATITIS B SURFACE ANTIGEN NEGATIVE (NEGATIVE)
[2021-04-07 12:46] LABS: HEPATITIS C VIRUS ABY INDEX 0.1 INDEX (<0.8)
[2021-04-07 12:47] LABS: HIV 1&2 SCREEN CENTAUR NEGATIVE (NEGATIVE)
[2021-04-07 12:50] LABS: GC DNA AMPLIFICATION NEGATIVE (NEGATIVE)
--- NOTE | 2021-04-08 11:17 | ECGEPIP ---
[facility] Test Date: 2021-04-07 Pat Name: ROM BOYKIN Department: Room: - Gender: Male Lurer: [facility] : 1985 Requested By: Dima Abraham Order Number: [id number] Reading MD: Hasmukh Graham Measurements Intervals [place] Rate: 65 P: 33 NV: 142 QRS: -13 QRSD: 80 T: 14 QT: 398 QTc: 413 Interpretive Statements normal sinus rhythm Poor precordial R wave progression with persistent S waves V5 and V6 Different precordial lead placement from 03/24/20 Electronically Signed on 04-08-2021 11:17:15 EDT by Hasmukh Graham
== END ==
LOC: M LAB 10:19
PROVIDERS: ATTEND Family Medicine
DX: F11.20 Opioid dependence, uncomplicated (principal)

== ENCOUNTER → 2022-07-23 | Outpatient (CLI) | payer MEDICARE ==
[2022-07-23 11:33] LABS: HEMATOCRIT 44.1 % (42.0-52.0); HEMOGLOBIN 14.2 g/dl (13.5-17.5); MEAN CORPUSCULAR HEMOGLOBIN 28.2 pg (27.0-33.0); MEAN CORPUSCULAR HGB CONC 32.2 g/dl (32.0-36.5); MEAN CORPUSCULAR VOLUME 87.7 fl (80.0-96.0); PLATELET COUNT, AUTOMATED 241 10^3/uL (150-450); RED BLOOD COUNT 5.03 10^6/uL (4.30-6.10); WHITE BLOOD COUNT 7.9 10^3/uL (4.0-10.0)
[2022-07-23 13:56] LABS: CHLORIDE LEVEL 103 MMOL/L (98-107); POTASSIUM SERUM 4.8 MMOL/L (3.5-5.1); SODIUM LEVEL 141 MMOL/L (136-145)
[2022-07-23 13:57] LABS: ALBUMIN 4.2 G/DL (3.2-5.2); CARBON DIOXIDE LEVEL 28 MMOL/L (20-31)
[2022-07-23 14:01] LABS: BLOOD UREA NITROGEN 17 MG/DL (9-23)
[2022-07-23 14:02] LABS: ALKALINE PHOSPHATASE 105 U/L (46-116); BILIRUBIN,TOTAL 0.4 MG/DL (0.3-1.2); GLUCOSE, FASTING 100 MG/DL (60-100)
[2022-07-23 14:04] LABS: ALT/SGPT 35 U/L (7.0-40); AST/SGOT 23 U/L (<34); GLOMERULAR FILTRATION RATE > 60.0 (>60)
[2022-07-23 14:09] LABS: HEPATITIS B SURFACE ANTIGEN NEGATIVE (NEGATIVE)
[2022-07-23 14:21] LABS: HIV 1&2 SCREEN CENTAUR NEGATIVE (NEGATIVE)
[2022-07-23 19:57] LABS: GC DNA AMPLIFICATION NEGATIVE (NEGATIVE)
== END ==
LOC: M LAB 09:07
PROVIDERS: ATTEND Family Medicine
DX: F16.20 Hallucinogen dependence, uncomplicated (principal)

== ENCOUNTER 2022-11-28 13:23 | Emergency (ER) | payer MEDICARE ==
[~2022-11-28] VITALS: Ht 182.9 cm; Wt 109.0 kg
[2022-11-28 13:23] VITALS: BP 155/106
[2022-11-28] MEDS ORDERED: SENN-23 PO (13:33)
[2022-11-28] MEDS ORDERED: NALO25TA PO (15:22)
[2022-11-28] MEDS ORDERED: DULC10SU2 PR (15:22)
== END 2022-11-28 15:31 | disposition home or self-care (01) ==
LOC: M ED 13:23
DX: K59.00 Constipation, unspecified (principal); F32.A Depression, unspecified; F43.10 Post-traumatic stress disorder, unspecified; F17.200 Nicotine dependence, unspecified, uncomplicated; Z79.899 Other long term (current) drug therapy

== ENCOUNTER 2024-11-26 13:34 | Emergency (ER) | payer MEDICARE, OTHER ==
[~2024-11-26] VITALS: Ht 185.4 cm; Wt 98.6 kg
[~2024-11-26 13:34] MED LIST changes: +DULC10SU2 PR; +GABA-1172 PO; +GABA-1490 PO; -GABA-282 PO; -GABA600T4 PO; -LIDO1CRE2 TOP; +LIDO4CRE12 TOP; +NALO25TA PO; +SENN-23 PO
[2024-11-26] MEDS ORDERED: CLONI1TA PO (13:47)
[2024-11-26 14:35] LABS: BASO % 0.2 % (0.0-1.0); EOS % 0.3 % (0.0-3.0); HEMATOCRIT 42.3 % (42.0-52.0); HEMOGLOBIN 14.4 g/dl (13.5-17.5); LYMPH # 1.3 10^3/uL (1.5-5.0); MEAN CORPUSCULAR HEMOGLOBIN 28.8 pg (27.0-33.0); MEAN CORPUSCULAR VOLUME 84.6 fl (80.0-96.0); MONO # 0.8 10^3/uL (0.0-0.8); MONO % 6.2 % (2.0-8.0); NEUTROPHILS # 10.4 10^3/uL (1.5-8.5); PLATELET COUNT, AUTOMATED 269 10^3/uL (150-450); WHITE BLOOD COUNT 12.6 10^3/uL (4.0-10.0)
[2024-11-26 14:55] LABS: ERYTHROCYTE SEDIMENTATION RATE 47 mm/hr (0-15)
[2024-11-26 15:12] LABS: BLOOD UREA NITROGEN 14 MG/DL (9-23); C REACTIVE PROTEIN QUANTITATIV 13.38 MG/DL (<1.0); CALCIUM LEVEL 8.8 MG/DL (8.5-10.1); CARBON DIOXIDE LEVEL 27 MMOL/L (20-31); CHLORIDE LEVEL 99 MMOL/L (98-107); CREATININE FOR GFR 0.85 MG/DL (0.70-1.30); GLOMERULAR FILTRATION RATE > 60.0 (>60); GLUCOSE, FASTING 107 MG/DL (60-100); POTASSIUM SERUM 4.6 MMOL/L (3.5-5.1); SODIUM LEVEL 135 MMOL/L (136-145)
[2024-11-26] MEDS: KETOROLAC 30 MG/ML 1ML VIAL IV ONE (18:06)
[2024-11-26] MEDS: CEFTAROLINE FOSAMIL 600 MG in DEXTROSE 5% (D5W) ADV/MINI-BAG 50 ML IV ONE (18:06)
[2024-11-26] MEDS ORDERED: DOXY-441 PO (19:14)
[2024-11-26 19:43] VITALS: TEMP 99.6
[2024-11-26 19:48] VITALS: BP 127/79; O2SAT 99
== END 2024-11-26 19:54 | disposition home or self-care (01) ==
LOC: M ED 13:34
DX: L03.113 Cellulitis of right upper limb (principal); F43.0 Acute stress reaction; F41.9 Anxiety disorder, unspecified; F17.200 Nicotine dependence, unspecified, uncomplicated; Z79.899 Other long term (current) drug therapy
CPT/HCPCS: 73130; 80048; 85025; 85652; 86140; 87040; 99284; J0712; J1885

== ENCOUNTER 2024-11-28 17:40 | Inpatient (IN) | payer OTHER ==
[~2024-11-28] VITALS: Ht 182.9 cm; Wt 102.3 kg
[~2024-11-28 17:40] MED LIST changes: +CLONI1TA PO; +DOXY-441 PO
[2024-11-28 19:45] LABS: BASO % 0.2 % (0.0-1.0); EOS # 0.1 10^3/uL (0.0-0.5); EOS % 0.5 % (0.0-3.0); HEMATOCRIT 36.3 % (42.0-52.0); HEMOGLOBIN 12.1 g/dl (13.5-17.5); LYMPH # 1.4 10^3/uL (1.5-5.0); LYMPH % 11.3 % (24.0-44.0); MEAN CORPUSCULAR HEMOGLOBIN 28.1 pg (27.0-33.0); MEAN CORPUSCULAR HGB CONC 33.3 g/dl (32.0-36.5); MEAN CORPUSCULAR VOLUME 84.4 fl (80.0-96.0); MONO # 1.1 10^3/uL (0.0-0.8); MONO % 8.3 % (2.0-8.0); NEUTROPHILS # 10.2 10^3/uL (1.5-8.5); NEUTROPHILS % 79.2 % (36.0-66.0); PLATELET COUNT, AUTOMATED 299 10^3/uL (150-450); WHITE BLOOD COUNT 12.8 10^3/uL (4.0-10.0)
[2024-11-28 19:54] LABS: ERYTHROCYTE SEDIMENTATION RATE 69 mm/hr (0-15)
[2024-11-28] MEDS: CEFTAROLINE FOSAMIL 600 MG in DEXTROSE 5% (D5W) ADV/MINI-BAG 50 ML IV ONE (20:00)
[2024-11-28 20:18] LABS: ALBUMIN 3.1 G/DL (3.2-5.2); ALKALINE PHOSPHATASE 109 U/L (40-129); ALT/SGPT 29 U/L (7.0-40); AST/SGOT 27 U/L (<34); BILIRUBIN,DIRECT 0.1 MG/DL (<0.4); BILIRUBIN,TOTAL 0.4 MG/DL (0.3-1.2); BLOOD UREA NITROGEN 12 MG/DL (9-23); CALCIUM LEVEL 8.7 MG/DL (8.5-10.1); CARBON DIOXIDE LEVEL 30 MMOL/L (20-31); CHLORIDE LEVEL 101 MMOL/L (98-107); CREATININE FOR GFR 0.85 MG/DL (0.70-1.30); GLOMERULAR FILTRATION RATE > 60.0 (>60); GLUCOSE, FASTING 97 MG/DL (60-100); POTASSIUM SERUM 4.5 MMOL/L (3.5-5.1); SODIUM LEVEL 137 MMOL/L (136-145); TOTAL PROTEIN 6.6 G/DL (5.7-8.2)
[2024-11-28 20:24] LABS: PROCALCITONIN 0.06 ng/ml
[2024-11-28 22:15] LABS: ETHYL ALCOHOL (ETHANOL) < 0.003 % (0.000-0.010)
[2024-11-28 22:24] LABS: KETONE, URINE AUTO RFX NEGATIVE (NEGATIVE); LEUKOCYTE ESTERASE UR AUTO RFX NEGATIVE (NEGATIVE); MUCUS, URINE RFX SMALL (NEGATIVE); NITRITE, URINE AUTO RFX NEGATIVE (NEGATIVE); RBC, URINE AUTO RFX 0 /HPF (0-3); SQUAM EPITHELIAL CELL UR AURFX 0 /HPF (0-6); WBC, URINE AUTO RFX 1 /HPF (0-3)
[2024-11-28 22:44] LABS: BARBITURATES URINE NEGATIVE (NEGATIVE); BENZODIAZEPINES URINE NEGATIVE (NEGATIVE); CANNABINOIDS URINE NEGATIVE (NEGATIVE); COCAINE METABOLITE URINE NEGATIVE (NEGATIVE); METHADONE URINE NEGATIVE (NEGATIVE); OPIATES URINE NEGATIVE (NEGATIVE); PHENCYCLIDINE URINE NEGATIVE (NEGATIVE)
[2024-11-28 22:47] LABS: AMPHETAMINES LEVEL URINE POSITIVE (NEGATIVE)
[2024-11-28] MEDS ORDERED: KETOROLAC 30 MG/ML 1ML VIAL IV PRN ×2 (23:05)
[2024-11-28] MEDS ORDERED: VANCOMYCIN HCL 1,500 MG, VIAL MATE ADAPTER 1 EACH in NS 500 ML IV SCH (23:05)
[2024-11-28] MEDS ORDERED: MAALOX 30 ML SUSP *UDC PO PRN (23:05)
[2024-11-28] MEDS ORDERED: MOM 30ML SUSPENSION UDC PO PRN (23:05)
[2024-11-28] MEDS ORDERED: NICOTINE 14 MG/24 HR TRANSDERMAL TD PRN (23:05)
[2024-11-28] MEDS ORDERED: ACETAMINOPHEN 325 MG TAB PO PRN (23:05)
[2024-11-29] MEDS: VANCOMYCIN HCL 2,000 MG, VIAL MATE ADAPTER 1 EACH in NS 500 ML IV ONE (00:23)
[2024-11-29] MEDS ORDERED: MELA5TAB47 PO (02:21)
[2024-11-29] MEDS ORDERED: ACET1TAB55 PO (02:21)
[2024-11-29] MEDS ORDERED: DOXY100T27 PO (02:21)
[2024-11-29] MEDS ORDERED: SUMA100T2 PO (02:21)
[2024-11-29] MEDS ORDERED: HOME MED LIST COMPLETE! XX SCH (02:25)
[2024-11-29 06:04] LABS: HEMATOCRIT 39.4 % (42.0-52.0); HEMOGLOBIN 13.3 g/dl (13.5-17.5); MEAN CORPUSCULAR HEMOGLOBIN 28.2 pg (27.0-33.0); MEAN CORPUSCULAR HGB CONC 33.8 g/dl (32.0-36.5); MEAN CORPUSCULAR VOLUME 83.5 fl (80.0-96.0); PLATELET COUNT, AUTOMATED 297 10^3/uL (150-450); RED BLOOD COUNT 4.72 10^6/uL (4.30-6.10); WHITE BLOOD COUNT 8.8 10^3/uL (4.0-10.0)
[2024-11-29 06:38] LABS: ALBUMIN 2.8 G/DL (3.2-5.2); ALKALINE PHOSPHATASE 107 U/L (40-129); ALT/SGPT 26 U/L (7.0-40); AST/SGOT 17 U/L (<34); BILIRUBIN,TOTAL 0.6 MG/DL (0.3-1.2); BLOOD UREA NITROGEN 9 MG/DL (9-23); CALCIUM LEVEL 8.5 MG/DL (8.5-10.1); CARBON DIOXIDE LEVEL 28 MMOL/L (20-31); CHLORIDE LEVEL 102 MMOL/L (98-107); GLOMERULAR FILTRATION RATE > 60.0 (>60); GLUCOSE, FASTING 102 MG/DL (60-100); POTASSIUM SERUM 4.2 MMOL/L (3.5-5.1); SODIUM LEVEL 137 MMOL/L (136-145); TOTAL PROTEIN 6.2 G/DL (5.7-8.2)
[2024-11-29 07:21] LABS: ERYTHROCYTE SEDIMENTATION RATE 32 mm/hr (0-15)
[2024-11-29 07:22] LABS: C REACTIVE PROTEIN QUANTITATIV 13.72 MG/DL (<1.0)
[2024-11-29] MEDS: DOCUSATE SODIUM 100MG CAPSULE PO SCH (08:03)
[2024-11-29] MEDS: KETOROLAC 30 MG/ML 1ML VIAL IV ONE (08:15)
[2024-11-29] MEDS: VANCOMYCIN HCL 1,000 MG, VIAL MATE ADAPTER 1 EACH in NS 250 ML IV SCH (08:15)
[2024-11-29] MEDS ORDERED: ENOXAPARIN 40MG/0.4ML SYRINGE (J1650 PER 10MG) SC SCH (09:00)
[2024-11-29] MEDS: KETOROLAC 30 MG/ML 1ML VIAL IV SCH (12:29)
[2024-11-29 14:11] VITALS: BP 129/85; TEMP 97.5; O2SAT 99
[2024-12-01] MEDS ORDERED: KETOROLAC 30 MG/ML 1ML VIAL IV PRN
== END 2024-11-29 15:30 | disposition left against medical advice (07) | DRG 603 ==
LOC: M ED 17:40 → M ED INP 23:04
PROVIDERS: ADMIT Student in an Organized Health Care Education/Training Program; ATTEND Student in an Organized Health Care Education/Training Program
DX: L03.113 Cellulitis of right upper limb (principal); F17.210 Nicotine dependence, cigarettes, uncomplicated; F41.9 Anxiety disorder, unspecified; F32.A Depression, unspecified; G89.29 Other chronic pain; F43.10 Post-traumatic stress disorder, unspecified; F10.90 Alcohol use, unspecified, uncomplicated; Z89.511 Acquired absence of right leg below knee; Z71.6 Tobacco abuse counseling; Z79.899 Other long term (current) drug therapy

== ENCOUNTER 2024-11-29 15:45 | Inpatient (IN) | payer OTHER ==
[~2024-11-29] VITALS: Ht 182.9 cm; Wt 100.8 kg
[~2024-11-29 15:45] MED LIST changes: +ACET1TAB55 PO; +DOXY100T27 PO; +MELA5TAB47 PO; +SUMA100T2 PO
[2024-11-29] MEDS ORDERED: VANCOMYCIN HCL 1,000 MG in IV FLUID PLACE HOLDER 1 EA IV ONE (16:35)
[2024-11-29] MEDS: VANCOMYCIN HCL 1,000 MG, VIAL MATE ADAPTER 1 EACH in NS 250 ML IV ONE (16:55)
[2024-11-29] MEDS ORDERED: HOME MED LIST COMPLETE! XX SCH (18:05)
[2024-11-29] MEDS: NICOTINE 14 MG/24 HR TRANSDERMAL TD PRN (22:35)
[2024-11-30] MEDS: VANCOMYCIN HCL 1,000 MG, VIAL MATE ADAPTER 1 EACH in NS 250 ML IV SCH (00:05)
[2024-11-30 06:26] LABS: BASO % 0.6 % (0.0-1.0); EOS # 0.1 10^3/uL (0.0-0.5); EOS % 1.5 % (0.0-3.0); HEMATOCRIT 41.3 % (42.0-52.0); HEMOGLOBIN 13.8 g/dl (13.5-17.5); LYMPH # 1.9 10^3/uL (1.5-5.0); LYMPH % 29.1 % (24.0-44.0); MEAN CORPUSCULAR HEMOGLOBIN 28.3 pg (27.0-33.0); MEAN CORPUSCULAR HGB CONC 33.4 g/dl (32.0-36.5); MEAN CORPUSCULAR VOLUME 84.8 fl (80.0-96.0); MONO # 0.6 10^3/uL (0.0-0.8); MONO % 9.2 % (2.0-8.0); NEUTROPHILS # 3.8 10^3/uL (1.5-8.5); NEUTROPHILS % 58.5 % (36.0-66.0); PLATELET COUNT, AUTOMATED 321 10^3/uL (150-450); RED BLOOD COUNT 4.87 10^6/uL (4.30-6.10); WHITE BLOOD COUNT 6.5 10^3/uL (4.0-10.0)
[2024-11-30 06:49] LABS: BLOOD UREA NITROGEN 13 MG/DL (9-23); C REACTIVE PROTEIN QUANTITATIV 8.55 MG/DL (<1.0); CALCIUM LEVEL 8.3 MG/DL (8.5-10.1); CARBON DIOXIDE LEVEL 27 MMOL/L (20-31); CHLORIDE LEVEL 106 MMOL/L (98-107); CREATININE FOR GFR 0.85 MG/DL (0.70-1.30); GLOMERULAR FILTRATION RATE > 60.0 (>60); GLUCOSE, FASTING 104 MG/DL (60-100); POTASSIUM SERUM 4.9 MMOL/L (3.5-5.1); SODIUM LEVEL 142 MMOL/L (136-145)
[2024-11-30] MEDS: KETOROLAC 30 MG/ML 1ML VIAL IV PRN (07:31)
[2024-11-30] MEDS: ENOXAPARIN 40MG/0.4ML SYRINGE (J1650 PER 10MG) SC SCH (08:52)
[2024-11-30 12:35] VITALS: BP 136/92; TEMP 97.7; O2SAT 97
[2024-11-30] MEDS ORDERED: SUMAtriptan SUCCINATE 25MG TABLET PO PRN (12:50)
[2024-11-30] MEDS: GABAPENTIN 300 MG CAP PO SCH (13:41)
[2024-11-30] MEDS: cloNIDine 0.1MG TABLET PO SCH (13:41)
[2024-11-30 19:43] VITALS: BP 143/95; TEMP 97.9; O2SAT 96
[2024-12-01 03:24] VITALS: BP 136/88; TEMP 97.7; O2SAT 97
[2024-12-01 07:41] LABS: HEMOGLOBIN 13.9 g/dl (13.5-17.5); MEAN CORPUSCULAR HGB CONC 32.3 g/dl (32.0-36.5); MEAN CORPUSCULAR VOLUME 86.7 fl (80.0-96.0); PLATELET COUNT, AUTOMATED 282 10^3/uL (150-450); RED BLOOD COUNT 4.96 10^6/uL (4.30-6.10); WHITE BLOOD COUNT 5.8 10^3/uL (4.0-10.0)
[2024-12-01 08:03] LABS: BLOOD UREA NITROGEN 14 MG/DL (9-23); CALCIUM LEVEL 8.3 MG/DL (8.5-10.1); CARBON DIOXIDE LEVEL 30 MMOL/L (20-31); CHLORIDE LEVEL 105 MMOL/L (98-107); GLOMERULAR FILTRATION RATE > 60.0 (>60); GLUCOSE, FASTING 104 MG/DL (60-100); POTASSIUM SERUM 4.8 MMOL/L (3.5-5.1); SODIUM LEVEL 141 MMOL/L (136-145)
[2024-12-01] MEDS: VANCOMYCIN HCL 1,250 MG, VIAL MATE ADAPTER 1 EACH in NS 250 ML IV SCH (08:26)
[2024-12-01 08:32] LABS: ATYPICAL LYMPH 5 % (0-5); EOSINOPHILS 2 % (0-3); LYMPHOCYTES 27 % (16-44); METAMYELOCYTES 1 % (0-0); MONOCYTES 6 % (0-5); NEUTROPHILS 59 % (28-66)
[2024-12-01] MEDS: ACETAMINOPHEN 325 MG TAB PO PRN (08:32)
[2024-12-01 08:34] LABS: PLATELET ESTIMATE NORMAL (NORMAL)
[2024-12-01 12:00] VITALS: BP 165/98; TEMP 97.3; O2SAT 99
[2024-12-01] MEDS: RAMELTEON 8 MG TAB (ROZEREM) PO PRN (22:08)
[2024-12-01 22:13] VITALS: BP 147/98; TEMP 97.7; O2SAT 99
[2024-12-02] VITALS (7 sets, daily range): BP systolic 113–139; BP diastolic 67–95; TEMP 97–97.9; O2SAT 94–98
[2024-12-02 07:53] LABS: BASO % 0.5 % (0.0-1.0); EOS # 0.1 10^3/uL (0.0-0.5); EOS % 1.1 % (0.0-3.0); HEMATOCRIT 41.1 % (42.0-52.0); HEMOGLOBIN 13.7 g/dl (13.5-17.5); LYMPH # 1.5 10^3/uL (1.5-5.0); LYMPH % 20.2 % (24.0-44.0); MEAN CORPUSCULAR HEMOGLOBIN 28.3 pg (27.0-33.0); MEAN CORPUSCULAR HGB CONC 33.3 g/dl (32.0-36.5); MEAN CORPUSCULAR VOLUME 84.9 fl (80.0-96.0); MONO # 0.6 10^3/uL (0.0-0.8); NEUTROPHILS # 5.1 10^3/uL (1.5-8.5); NEUTROPHILS % 69.1 % (36.0-66.0); PLATELET COUNT, AUTOMATED 320 10^3/uL (150-450); RED BLOOD COUNT 4.84 10^6/uL (4.30-6.10); WHITE BLOOD COUNT 7.4 10^3/uL (4.0-10.0)
[2024-12-02 08:27] LABS: ALBUMIN 2.9 G/DL (3.2-5.2); ALKALINE PHOSPHATASE 108 U/L (40-129); ALT/SGPT 59 U/L (7.0-40); AST/SGOT 27 U/L (<34); BILIRUBIN,DIRECT < 0.1 MG/DL (<0.4); BILIRUBIN,TOTAL 0.3 MG/DL (0.3-1.2); BLOOD UREA NITROGEN 13 MG/DL (9-23); CALCIUM LEVEL 8.7 MG/DL (8.5-10.1); CARBON DIOXIDE LEVEL 27 MMOL/L (20-31); CHLORIDE LEVEL 105 MMOL/L (98-107); CREATININE FOR GFR 0.74 MG/DL (0.70-1.30); GLOMERULAR FILTRATION RATE > 60.0 (>60); GLUCOSE, FASTING 133 MG/DL (60-100); POTASSIUM SERUM 4.5 MMOL/L (3.5-5.1); SODIUM LEVEL 140 MMOL/L (136-145); TOTAL PROTEIN 6.5 G/DL (5.7-8.2)
[2024-12-02] MEDS ORDERED: MIDAZOLAM INJ 2MG/2ML VIAL As Ordered ONE (10:54)
[2024-12-02] MEDS ORDERED: propofoL 200 MG/20 ML VIAL As Ordered ONE (10:54)
[2024-12-02] MEDS ORDERED: LIDOCAINE 2% 100MG/5ML SDV (FOR ANES.) As Ordered ONE (10:54)
[2024-12-02] MEDS ORDERED: fentaNYL 100 MCG/2 ML INJECTION As Ordered ONE (10:54)
[2024-12-02] MEDS: ceFAZolin SODIUM 2 GM VIAL As Ordered ONE (11:50)
[2024-12-02] MEDS ORDERED: ePHEDrine SULFATE 25 MG/5 ML(5MG/ML) SYRINGE As Ordered ONE (11:53)
[2024-12-02] MEDS ORDERED: ONDANSETRON 4MG 2ML VIAL As Ordered ONE (11:53)
[2024-12-02] MEDS ORDERED: KETOROLAC 30 MG/ML 1ML VIAL As Ordered ONE (11:53)
[2024-12-02] MEDS ORDERED: PHENYLephrine 500MCG 5ML (100MCG/ML) SYRINGE As Ordered ONE (12:05)
[2024-12-02] MEDS: ACETAMINOPHEN *IV* 1,000 MG in IV 1 EA IV ONE (13:00)
[2024-12-02] MEDS: PERCOCET 5MG/325MG TAB PO PRN (16:57)
[2024-12-03 03:50] VITALS: BP 102/55; TEMP 97.7; O2SAT 95
[2024-12-03 08:01] LABS: BASO % 0.2 % (0.0-1.0); EOS % 0.2 % (0.0-3.0); HEMATOCRIT 38.7 % (42.0-52.0); HEMOGLOBIN 12.7 g/dl (13.5-17.5); LYMPH % 16.2 % (24.0-44.0); MEAN CORPUSCULAR HEMOGLOBIN 28.3 pg (27.0-33.0); MEAN CORPUSCULAR HGB CONC 32.8 g/dl (32.0-36.5); MEAN CORPUSCULAR VOLUME 86.2 fl (80.0-96.0); MONO # 0.9 10^3/uL (0.0-0.8); NEUTROPHILS # 9.6 10^3/uL (1.5-8.5); NEUTROPHILS % 75.8 % (36.0-66.0); PLATELET COUNT, AUTOMATED 318 10^3/uL (150-450); RED BLOOD COUNT 4.49 10^6/uL (4.30-6.10); WHITE BLOOD COUNT 12.6 10^3/uL (4.0-10.0)
[2024-12-03 08:24] LABS: C REACTIVE PROTEIN QUANTITATIV 1.26 MG/DL (<1.0)
[2024-12-03 08:26] LABS: BLOOD UREA NITROGEN 20 MG/DL (9-23); CALCIUM LEVEL 8.7 MG/DL (8.5-10.1); CARBON DIOXIDE LEVEL 29 MMOL/L (20-31); CHLORIDE LEVEL 104 MMOL/L (98-107); GLOMERULAR FILTRATION RATE > 90.0 (>60); GLUCOSE, FASTING 116 MG/DL (60-100); POTASSIUM SERUM 4.4 MMOL/L (3.5-5.1); SODIUM LEVEL 142 MMOL/L (136-145)
[2024-12-03 12:00] VITALS: BP 114/65; TEMP 97.9; O2SAT 98
[2024-12-03 14:00] VITALS: BP 114/65; TEMP 97.9; O2SAT 98
[2024-12-03] MEDS: VANCOMYCIN HCL 1,000 MG, VIAL MATE ADAPTER 1 EACH in NS 250 ML IV SCH (16:20)
[2024-12-03 20:30] VITALS: BP 147/96; TEMP 97.5; O2SAT 98
[2024-12-03] MEDS: PERCOCET 5MG/325MG TAB PO PRN (20:45)
[2024-12-04 04:10] VITALS: BP 135/85; TEMP 97.7; O2SAT 96
[2024-12-04 08:23] LABS: BASO # 0.1 10^3/uL (0.0-0.2); BASO % 0.8 % (0.0-1.0); EOS # 0.1 10^3/uL (0.0-0.5); EOS % 1.3 % (0.0-3.0); HEMATOCRIT 41.6 % (42.0-52.0); HEMOGLOBIN 12.9 g/dl (13.5-17.5); LYMPH # 2.3 10^3/uL (1.5-5.0); MEAN CORPUSCULAR HEMOGLOBIN 27.6 pg (27.0-33.0); MEAN CORPUSCULAR VOLUME 89.1 fl (80.0-96.0); MONO # 0.6 10^3/uL (0.0-0.8); MONO % 7.2 % (2.0-8.0); NEUTROPHILS # 4.5 10^3/uL (1.5-8.5); NEUTROPHILS % 58.2 % (36.0-66.0); PLATELET COUNT, AUTOMATED 298 10^3/uL (150-450); RED BLOOD COUNT 4.67 10^6/uL (4.30-6.10); WHITE BLOOD COUNT 7.7 10^3/uL (4.0-10.0)
[2024-12-04 08:50] LABS: VANCOMYCIN LEVEL TROUGH 11.7 UG/ML (10.0-20.0)
[2024-12-04 08:51] LABS: BLOOD UREA NITROGEN 17 MG/DL (9-23); C REACTIVE PROTEIN QUANTITATIV 0.94 MG/DL (<1.0); CALCIUM LEVEL 8.2 MG/DL (8.5-10.1); CARBON DIOXIDE LEVEL 28 MMOL/L (20-31); CHLORIDE LEVEL 104 MMOL/L (98-107); CREATININE FOR GFR 0.79 MG/DL (0.70-1.30); GLOMERULAR FILTRATION RATE > 90.0 (>60); GLUCOSE, FASTING 115 MG/DL (60-100); POTASSIUM SERUM 4.6 MMOL/L (3.5-5.1); SODIUM LEVEL 141 MMOL/L (136-145)
[2024-12-04] MEDS: VANCOMYCIN HCL 1,250 MG, VIAL MATE ADAPTER 1 EACH in NS 250 ML IV SCH (09:38)
[2024-12-04 09:39] VITALS: BP 132/98
== END 2024-12-04 12:43 | disposition home or self-care (01) | DRG 603 ==
LOC: M ED 15:45 → M ED INP 16:51 → EEVIPCON 16:51 → M MSPAV 11-30 12:35
PROVIDERS: ADMIT Internal Medicine; ATTEND Internal Medicine
PROC: 3E10X8Z Irrigation of Skin and Mucous Membranes using Irrigating Substance (ICD-10-PCS; principal; 2024-12-02 12:15)
DX: L03.115 Cellulitis of right lower limb (principal); L02.511 Cutaneous abscess of right hand; F17.210 Nicotine dependence, cigarettes, uncomplicated; G43.709 Chronic migraine without aura, not intractable, without status migrainosus; G89.29 Other chronic pain; G47.00 Insomnia, unspecified; F41.1 Generalized anxiety disorder; F43.10 Post-traumatic stress disorder, unspecified; F32.9 Major depressive disorder, single episode, unspecified; Z89.511 Acquired absence of right leg below knee; Z79.899 Other long term (current) drug therapy

== ENCOUNTER 2024-12-10 17:48 | Inpatient (IN) | payer OTHER ==
[~2024-12-10] VITALS: Ht 182.9 cm; Wt 99.9 kg
[2024-12-10] MEDS: CEFTAROLINE FOSAMIL 600 MG in DEXTROSE 5% (D5W) ADV/MINI-BAG 50 ML IV ONE (00:23)
[2024-12-10 23:17] LABS: BASO % 0.3 % (0.0-1.0); EOS # 0.1 10^3/uL (0.0-0.5); HEMOGLOBIN 12.8 g/dl (13.5-17.5); LYMPH # 2.1 10^3/uL (1.5-5.0); LYMPH % 23.7 % (24.0-44.0); MEAN CORPUSCULAR HEMOGLOBIN 28.6 pg (27.0-33.0); MEAN CORPUSCULAR HGB CONC 32.8 g/dl (32.0-36.5); MEAN CORPUSCULAR VOLUME 87.2 fl (80.0-96.0); MONO # 0.7 10^3/uL (0.0-0.8); MONO % 7.5 % (2.0-8.0); NEUTROPHILS # 6.1 10^3/uL (1.5-8.5); NEUTROPHILS % 67.2 % (36.0-66.0); PLATELET COUNT, AUTOMATED 348 10^3/uL (150-450); RED BLOOD COUNT 4.47 10^6/uL (4.30-6.10)
[2024-12-10 23:46] LABS: C REACTIVE PROTEIN QUANTITATIV 2.48 MG/DL (<1.0)
[2024-12-10 23:47] LABS: BLOOD UREA NITROGEN 18 MG/DL (9-23); CALCIUM LEVEL 8.9 MG/DL (8.5-10.1); CARBON DIOXIDE LEVEL 30 MMOL/L (20-31); CHLORIDE LEVEL 100 MMOL/L (98-107); GLOMERULAR FILTRATION RATE > 90.0 (>60); GLUCOSE, FASTING 142 MG/DL (60-100); POTASSIUM SERUM 4.2 MMOL/L (3.5-5.1); SODIUM LEVEL 138 MMOL/L (136-145)
[2024-12-10 23:53] LABS: PROCALCITONIN 0.05 ng/ml
[2024-12-11] MEDS ORDERED: GABA-1490 PO (00:44)
[2024-12-11] MEDS ORDERED: HOME MED LIST COMPLETE! XX SCH (00:45)
[2024-12-11] MEDS ORDERED: MAALOX 30 ML SUSP *UDC PO PRN (05:00)
[2024-12-11] MEDS ORDERED: ACETAMINOPHEN 325 MG TAB PO PRN (05:00)
[2024-12-11] MEDS ORDERED: MOM 30ML SUSPENSION UDC PO PRN (05:00)
[2024-12-11 08:22] LABS: BASO % 0.3 % (0.0-1.0); EOS # 0.1 10^3/uL (0.0-0.5); EOS % 1.1 % (0.0-3.0); HEMATOCRIT 39.1 % (42.0-52.0); HEMOGLOBIN 12.7 g/dl (13.5-17.5); LYMPH # 1.1 10^3/uL (1.5-5.0); LYMPH % 11.1 % (24.0-44.0); MEAN CORPUSCULAR HEMOGLOBIN 28.1 pg (27.0-33.0); MEAN CORPUSCULAR HGB CONC 32.5 g/dl (32.0-36.5); MEAN CORPUSCULAR VOLUME 86.5 fl (80.0-96.0); MONO # 0.8 10^3/uL (0.0-0.8); NEUTROPHILS # 8.1 10^3/uL (1.5-8.5); NEUTROPHILS % 79.1 % (36.0-66.0); PLATELET COUNT, AUTOMATED 357 10^3/uL (150-450); RED BLOOD COUNT 4.52 10^6/uL (4.30-6.10); WHITE BLOOD COUNT 10.2 10^3/uL (4.0-10.0)
[2024-12-11 08:24] LABS: C REACTIVE PROTEIN QUANTITATIV 2.72 MG/DL (<1.0)
[2024-12-11 08:25] LABS: ALBUMIN 3.6 G/DL (3.2-5.2); ALKALINE PHOSPHATASE 108 U/L (40-129); ALT/SGPT 39 U/L (7.0-40); ANTI-STREPTOLYSIN O QUANT 487.7 IU/ML (<195); AST/SGOT 19 U/L (<34); BILIRUBIN,TOTAL 0.7 MG/DL (0.3-1.2); BLOOD UREA NITROGEN 20 MG/DL (9-23); CARBON DIOXIDE LEVEL 29 MMOL/L (20-31); CHLORIDE LEVEL 101 MMOL/L (98-107); CREATININE FOR GFR 1.02 MG/DL (0.70-1.30); GLOMERULAR FILTRATION RATE > 90.0 (>60); GLUCOSE, FASTING 127 MG/DL (60-100); POTASSIUM SERUM 4.5 MMOL/L (3.5-5.1); SODIUM LEVEL 136 MMOL/L (136-145); TOTAL PROTEIN 7.1 G/DL (5.7-8.2)
[2024-12-11] MEDS: DOCUSATE SODIUM 100MG CAPSULE PO SCH (09:00)
[2024-12-11] MEDS: ENOXAPARIN 40MG/0.4ML SYRINGE (J1650 PER 10MG) SC SCH (09:00)
[2024-12-11] MEDS ORDERED: AMOX875T2 PO (11:55)
[2024-12-11] MEDS ORDERED: DOXY-440 PO (11:55)
[2024-12-11] MEDS: CEFTAROLINE FOSAMIL 600 MG in DEXTROSE 5% (D5W) ADV/MINI-BAG 50 ML IV SCH (12:23)
[2024-12-11 13:25] VITALS: BP 151/90; TEMP 97.1; O2SAT 96
== END 2024-12-11 13:31 | disposition home or self-care (01) | DRG 603 ==
LOC: M ED 17:48 → M ED INP 12-11 04:58
PROVIDERS: ADMIT Student in an Organized Health Care Education/Training Program; ATTEND Student in an Organized Health Care Education/Training Program
DX: L03.113 Cellulitis of right upper limb (principal); L02.511 Cutaneous abscess of right hand; E87.20 Acidosis, unspecified; F39 Unspecified mood [affective] disorder; G89.29 Other chronic pain; F17.210 Nicotine dependence, cigarettes, uncomplicated; G43.709 Chronic migraine without aura, not intractable, without status migrainosus; Z89.511 Acquired absence of right leg below knee; Z79.899 Other long term (current) drug therapy